=== PATIENT | male | born 1990 | race Caucasian/White ===

== ENCOUNTER 2018-05-02 21:16 | Inpatient (IN) ==
[2018-05-02] MEDS ORDERED: IOPAMIDOL 100 ML BOTTLE IV ONE (21:17)
[2018-05-02] MEDS ORDERED: VANCOMYCIN 1,500 MG in 0.9 % SODIUM CHLORIDE 500 ML IV ONE (21:31)
[2018-05-02] MEDS ORDERED: LACTATED RINGERS 1,000 ML IV ONE (21:31)
[2018-05-02] MEDS ORDERED: LEVOFLOXACIN 750 MG/150 ML BAG IV ONE (21:31)
[2018-05-02] MEDS ORDERED: cefTRIAXone 1 GM VIAL IV ONE (21:31)
--- NOTE | 2018-05-02 21:36 | Emergency Department Note ---
Fever HPI - General Chief Complaint: Fever Stated Complaint: fever Time Seen by Provider: 05/02/18 21:26 Source: patient Mode of arrival: ambulatory - History of Present Illness HPI Narrative: This patient has not had a fever for last several days. He was recently in residential. He was diagnosed in February with possible endocarditis and renal cell carcinoma and was transferred to another hospital I do not know where yet, I assume he did receive treatment. He is an IV meth drug abuser. He was transferred from [facility] to [place] for 6 weeks of IV antibiotics. After that he was supposed to go to [place] to see a urologist and an ID DrLeann but he did not have transportation. He is getting rested briefly. He did go to [facility] ER in the middle of March for fever but left before he could be admitted because he was not getting narcotics. A CT scan at that time was suspicious for osteomyelitis at T11 and an abscess. This patient has been abusing IV meth recently and has a number of track nicole on both hands. His temperature was 105 initially. There is certainly concern for possibility of recurrent endocarditis. Also concern for the possibility of osteomyelitis with an abscess as he has not had any medical care since that possible diagnosis was made a month ago. - Related Data Home Medications Medication Instructions Recorded Confirmed buprenorphine 8 mg-naloxone 2 mg 2 tab SUBLINGUAL QDAY 02/15/18 02/15/18 sublingual tablet doxycycline calcium PO 02/15/18 02/15/18 prednisone PO 02/15/18 02/15/18 Previous Rx's Medication Instructions Recorded Metoclopramide [Reglan] 5 mg PO TIDAC PRN #20 tab 02/18/18 Allergies Allergy/AdvReac Type Severity Reaction Status Date / Time atomoxetine Allergy Unknown Unknown Verified 02/19/18 09:01 bupropion [From Wellbutrin] Allergy Unknown Unknown Verified 02/19/18 09:01 codeine Allergy Swelling Verified 02/19/18 09:01 prochlorperazine AdvReac Seizure Verified 02/19/18 09:01 [From Compazine] Review of Systems All systems ED: reviewed and negative except as stated. Fever PMH - Past Medical History Medical history: Reports: cancer (renal cell), other (drug abuse and large unknown mental health hx, schizophrenia according to mom) Psychiatric history: Reports: schizophrenia Family history: Reports: no significant family history - Social History smoking status: Current every day smoker Alcohol use: Reports: Occasionally Drug use: Reports: IVDU (heroin hx) Physical Exam Limitations: no limitations General appearance: alert Head: atraumatic Eye: Present: normal appearance ENT: normal exam Neck: Present: normal inspection Chest: Present: normal inspection Respiratory: Present: normal lung sounds bilaterally Cardiovascular: Present: regular rate, normal rhythm, normal heart sounds Abdominal: Present: soft. Absent: distention, tenderness Neurological: Present: alert Psychiatric: Present: normal affect, normal mood Skin: Present: warm, dry, intact Course Vital Signs Temperature 105.3 F H 05/02/18 21:17 Pulse Rate 138 H 05/02/18 21:17 Respiratory Rate 22 05/02/18 21:17 Blood Pressure 143/88 05/02/18 21:17 Pulse Oximetry (%) 100 05/02/18 21:17 Temperature 100.6 F H 05/03/18 07:35 Pulse Rate 100 H 05/03/18 08:16 Respiratory Rate 22 05/03/18 08:16 Blood Pressure 106/87 05/03/18 08:16 Pulse Oximetry (%) 98 05/03/18 08:16 Fever - MDM Narrative Medical decision making narrative: Dr. Smith reviewed 3 CAT scans of the patient's back going back to 2013 and does not feel the patient has osteomyelitis. 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 Lab work was otherwise not too remarkable. At this time patient is getting an echocardiogram to rule out endocarditis and will be admitted to the hospital by Dr. Guzman. He has received Levaquin and Rocephin and nafcillin 2 doses of the nafcillin. The septic pulmonary emboli that were evident on the CAT scan in February are almost completely resolved. - Lab Data Lab results reviewed: Yes I reviewed the patient's lab results. Result diagrams: 05/02/18 23:32 05/02/18 21:53 Lab Results 05/02/18 05/02/18 05/02/18 Range/Units 21:53 21:53 21:53 WBC TNP RBC TNP Hgb TNP Hct TNP MCV TNP MCH TNP MCHC TNP RDW TNP Plt Count TNP MPV TNP Gran % (38.0-78.0) % Lymph % (Auto) (15.5-49.0) % [place] % (Auto) (1.0-12.0) % Eos % (Auto) (0.0-7.0) % Baso % (Auto) (0.0-2.0) % Gran # (1.8-8.0) K/mcL Lymph # (Auto) (1.5-4.8) K/mcL [place] # (Auto) (0.1-0.9) K/mcL Eos # (Auto) (0.0-0.7) K/mcL Baso # (Auto) (0.0-0.3) K/mcL VBG Lactic Acid 0.7 (0.5-2.2) mmol/L Sodium 129 L (133-145) mmol/L Potassium 4.1 (3.3-5.1) mmol/L Chloride 94 L (96-108) mmol/L Carbon Dioxide 17 L (22-30) mmol/L Anion Gap 18.0 H (8-16) BUN 10 (6-20) mg/dl Creatinine 1.0 (0.7-1.2) mg/dl GFR Calculation 101 Glucose 100 (70-105) mg/dL Calcium 8.7 (8.6-10.4) mg/dl Total Bilirubin 0.5 (0.0-1.0) mg/dL AST 26 (0-37) U/l ALT 17 (0-40) U/l Alkaline Phosphatase 81 (39-117) U/L Total Protein 7.8 (5.9-8.4) gm/dL Albumin 4.4 (3.2-5.2) gm/dL Globulin 3.4 (2.2-3.7) gm/dL Albumin/Globulin Ratio 1.3 (1.0-2.3) Urine Color Urine Appearance Urine pH (5.0-9.0) Ur Specific [place] (1.000-1.035) Urine Protein (NEG) mg/dL Urine Glucose (UA) (NEG) mg/dL Urine Ketones (NEG) mg/dL Urine Occult Blood (<0.03) mg/dL Urine Nitrate (NEG) Urine Bilirubin (NEG) mg/dL Urine Urobilinogen (NEG) mg/dL Ur Leukocyte Esterase (NEG) /uL Ur Culture Indicated? 05/02/18 05/02/18 Range/Units 23:32 23:35 WBC 7.0 RBC 4.58 Hgb 13.5 Hct 39.4 L MCV 86.0 MCH 29.5 MCHC 34.3 RDW 13.9 Plt Count 201 MPV 7.8 Gran % 80.6 H (38.0-78.0) % Lymph % (Auto) 10.8 L (15.5-49.0) % [place] % (Auto) 8.2 (1.0-12.0) % Eos % (Auto) 0 (0.0-7.0) % Baso % (Auto) 0.4 (0.0-2.0) % Gran # 5.6 (1.8-8.0) K/mcL Lymph # (Auto) 0.8 L (1.5-4.8) K/mcL [place] # (Auto) 0.6 (0.1-0.9) K/mcL Eos # (Auto) 0 (0.0-0.7) K/mcL Baso # (Auto) 0 (0.0-0.3) K/mcL VBG Lactic Acid (0.5-2.2) mmol/L Sodium (133-145) mmol/L Potassium (3.3-5.1) mmol/L Chloride (96-108) mmol/L Carbon Dioxide (22-30) mmol/L Anion Gap (8-16) BUN (6-20) mg/dl Creatinine (0.7-1.2) mg/dl GFR Calculation Glucose (70-105) mg/dL Calcium (8.6-10.4) mg/dl Total Bilirubin (0.0-1.0) mg/dL AST (0-37) U/l ALT (0-40) U/l Alkaline Phosphatase (39-117) U/L Total Protein (5.9-8.4) gm/dL Albumin (3.2-5.2) gm/dL Globulin (2.2-3.7) gm/dL Albumin/Globulin Ratio (1.0-2.3) Urine Color Yellow Urine Appearance Clear Urine pH 6.0 (5.0-9.0) Ur Specific [place] 1.011 (1.000-1.035) Urine Protein Neg (NEG) mg/dL Urine Glucose (UA) Negative (NEG) mg/dL Urine Ketones 5/tr A (NEG) mg/dL Urine Occult Blood Neg (<0.03) mg/dL Urine Nitrate Neg (NEG) Urine Bilirubin Neg (NEG) mg/dL Urine Urobilinogen Neg (NEG) mg/dL Ur Leukocyte Esterase Neg (NEG) /uL Ur Culture Indicated? No - Radiology Data Radiology results reviewed: Yes I reviewed the patient's radiology results. Disposition Pt seen by CLAMP REMOVER/PA only: No Clinical Impression: Fever of unknown origin Disposition: Xfer As Inpt ([facility]) Condition: Good Referrals: Darrin Rae MD [Primary Care Provider] - Time of Disposition: 08:42
[2018-05-02] MEDS ORDERED: cefTRIAXone 1 GM VIAL ONE (22:52)
[2018-05-02] MEDS ORDERED: 0.9 % SODIUM CHLORIDE 1,000 ML IV ONE (22:53)
[2018-05-02 23:11] LABS: ALT/SGPT 17 U/l (0-40); Albumin 4.4 gm/dL (3.2-5.2); Albumin/Globulin Ratio 1.3 (1.0-2.3); Alkaline Phosphatase 81 U/L (39-117); Blood Urea Nitrogen 10 mg/dl (6-20)
[2018-05-02] MEDS ORDERED: SODIUM CHLORIDE 0.9% IV ONE (23:17)
[2018-05-02] MEDS ORDERED: NAFCILLIN IV ONE (23:17)
[2018-05-03 00:14] LABS: Basophils # (Auto) 0 K/mcL (0.0-0.3); Basophils % (Auto) 0.4 % (0.0-2.0); Eosinophils # (Auto) 0 K/mcL (0.0-0.7); Eosinophils % (Auto) 0 % (0.0-7.0); Granulocytes % (Auto) 80.6 % (38.0-78.0); Lymphocytes # (Auto) 0.8 K/mcL (1.5-4.8); Lymphocytes % (Auto) 10.8 % (15.5-49.0); Mean Corpuscular HGB Conc 34.3 g/dL (31.0-36.0); Mean Corpuscular Hemoglobin 29.5 pg (26.0-34.0); Monocytes # (Auto) 0.6 K/mcL (0.1-0.9); Monocytes % (Auto) 8.2 % (1.0-12.0); Platelet Count 201 K/mcL (140-440); RBC 4.58 M/mcL (4.50-5.90); Red Cell Distribution Width 13.9 % (11.5-14.5)
[2018-05-03 00:17] LABS: Appearance,Urine CLEAR; Bilirubin,Urine NEG (NEG); Color,Urine YELLOW; Glucose,Urine (UA) NEGATIVE (NEG); Leukocyte Esterase,Urine NEG /uL (NEG); Protein,Urine NEG (NEG); Specific Gravity,Urine 1.011 (1.000-1.035); Urine Blood NEG mg/dL (<0.03); Urobilinogen,Urine NEG (NEG)
[2018-05-03] MEDS: HYDROmorphone 2 MG/ML VIAL IV PRN ×3 (01:45→09:34)
[2018-05-03] MEDS ORDERED: ACETAMINOPHEN 325 MG TABLET PO ONE (02:10)
[2018-05-03] MEDS ORDERED: ACETAMINOPHEN 1,000 MG/100 ML BOTTLE IV ONE (06:42)
[2018-05-03] MEDS: SODIUM CHLORIDE 0.9% IV SCH ×2 (06:50→21:11)
[2018-05-03] MEDS: NAFCILLIN IV SCH ×2 (06:50→21:11)
--- NOTE | 2018-05-03 07:53 | Cat Scan Report ---
History: Headaches and fever TECHNIQUE: The brain was imaged without contrast at 2.5 mm intervals. Radiation exposure was limited using dose reduction technology. FINDINGS: The brain appears normal without evidence of inflammation, edema, infarct, hemorrhage or mass effect. The ventricles and cisterns are normal. The bone windows show no skull lesion. There is moderate bilateral ethmoid sinusitis and mild sphenoid and left frontal sinusitis. IMPRESSION: Normal brain Sinusitis Interpreted and Authenticated by: Santino Smith 05/03/18
--- NOTE | 2018-05-03 08:35 | Cat Scan Report ---
History: Fever and left renal cell cancer TECHNIQUE: Patient was imaged following intravenous contrast scanning during the venous phase from the thoracic inlet through the symphysis pubis. Sagittal, coronal and MIPS images were then created. FINDINGS: CHEST: Beneath the pleura laterally in the left upper lobe there is a 3 mm nodule. This is probably a granuloma. Multiple cavitary nodules are scattered throughout both lungs on the prior chest CT done at [facility] on 03/06/18. These have since resolved, indicating this is due to an infectious or inflammatory process. No suspicious mass is seen in either lung. There is no pulmonary abscess or pleural effusion. There are thin linear bands of discoid atelectasis or scar paralleling the pleural surface in the posterior lateral basal segment right lower lobe and to a lesser extent in the lateral basal segment left lower lobe. There are couple reactive lymph nodes in the pretracheal retrocaval space of the mediastinum. These have diminished in size. The heart is normal in size and contour. The aorta is normal in caliber and the central pulmonary arteries are normal without evidence of emboli. Abdomen and pelvis: The liver and spleen are normal in size and homogeneous. The gallbladder pancreas, adrenals and right kidney are normal. There is an exophytic solid mass located laterally in the lower third of left kidney. It has lower attenuation than that of the adjacent cortex during both the arterial and delayed excretory phase. It measures 1.7 x 1.[address] done at [facility] on 03/06/18 was performed without contrast. The mass was less conspicuous on the prior CT and the measurements were less accurate. The mass may have enlarged 1 mm. There is no associated retroperitoneal adenopathy. The left renal vein and inferior vena cava are normal. There is no extension of tumor through Gerota's fascia. The bowel gas pattern is normal. The appendix is noninflamed. Urinary bladder is unopacified but appears normal. No abnormality seen in the prostate or seminal vesicles. There is no adenopathy or ascites within the abdomen or pelvis.. 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 The greatest involvement is at T11. There is a mild anterior wedge compression deformity of T11, involving the superior endplate. There is approximately 20% loss of height anteriorly. There is no erosion of bone. The medullary bone has a subtle heterogeneous sclerotic pattern. No paraspinal abscess or edema are present. The appearance of the T11 vertebra has remained stable since 03/27/18. The mild sclerotic pattern and loss of height of the T11 vertebra are new since 2013. The left renal mass was also not present in 2014. IMPRESSION: Near complete resolution of the cavitary infiltrates seen throughout both lungs on recent chest CTs done at [facility]. There is some residual scarring in both lung bases and a small granuloma laterally in the left upper lobe Slowly enlarging tumor in the left kidney which is highly suspicious for renal cell carcinoma. Scheuermann's disease in the thoracic and lumbar spine Mild compression fracture at T11 which is not acute. The mild sclerosis seen at T11 is more likely due to reparative changes from the compression fracture rather than chronic low-grade osteomyelitis. Dr. Azevedo was called with the results Interpreted and Authenticated by: Santino Smith 05/03/18
--- NOTE | 2018-05-03 08:46 | XRay Report ---
HISTORY: High fever and smoker FINDINGS: There is a small peripheral scar laterally in the left mid thorax. This is a chronic stable finding. The lungs are otherwise clear, without evidence of pneumonia or mass. There is no adenopathy or pleural effusion. The heart size and pulmonary vasculature are normal. There has been little change since 03/22/18. IMPRESSION: Normal chest. Interpreted and Authenticated by: Santino Smith 05/03/18
[2018-05-03] MEDS ORDERED: 0.9 % SODIUM CHLORIDE 1,000 ML IV SCH (10:00)
--- NOTE | 2018-05-03 10:02 | Internal Med History&Physical ---
Medical - H&P: HPI Patient information: Note initiated : 05/03/18 at 9:58 am Service Date, if different from initiated Date: [] Patient: Wilman Rosas a 28 y/o M admitted on for fever. Chief Complaint: [] History of present illness: Mr. Rosas is a 28 year old M Who presents with generalized weakness fatigue malaise fevers headaches chills, he states this been going on for a 1-2 weeks but worsened over the past 1-2 days. History is significant for endocarditis in February he was discharged to rehab facility for 6 weeks of the antibiotics he was released in March. In March he went to [facility] ER there was concern for possible spinal osteo- the patient left the ER AMA. Has not seen anybody since then. Has sound like a fairly recent diagnosis of renal cell carcinoma this year. After getting out of rehab he was supposed to follow-up with infectious disease and oncologist in [place] he did not follow-up with them because of transportation issues. In the ER he is found to be febrile of up to 105, mildly tachycardic, blood pressure stable. No leukocytosis and lactate was within normal limits. He is using IV methamphetamines again last time he used was last . Concern for recurrent endocarditis. CT scan of the abdomen chest and pelvis was done which showed resolution of his pulmonary septic emboli otherwise no acute pathology other than enlarging left renal tumor. The CT scan was reviewed including the past scans including the one at [facility] where there is concern for osteo-in all 3 scans were compared by the radiologist felt there is no vertebral osteomyelitis. Review of Systems: Patient complains of generalized weakness fatigue malaise fever chills headache , chronic neck and back pain, nausea. denies vomiting/chest or abdominal pain/ cough/dyspnea/diarrhea. 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) Moderate mood disorder (Chronic) Atypical mole (Chronic) Hematuria (Chronic) Abdominal pain, generalized (Chronic) Fever (Chronic) Renal mass (Chronic) Primary malignant neoplasm of left renal pelvis (Chronic) Opioid dependence (Chronic) Allergic rhinitis (Chronic) Asthma (Chronic) ADD (attention deficit disorder) (Chronic) Left flank pain (Chronic) Primary malignant neoplasm (Chronic) Shoulder strain (Chronic) Drug-induced psychotic disorder (Chronic) Depression (Chronic) Left against medical advice (Chronic) Osteomyelitis (Chronic) Past Surgical History (Last Reviewed 02/15/18 @ 09:46 by Rebekah Bradford RN) History of orthopedic surgery (Chronic) Family History (Last Reviewed 02/15/18 @ 09:46 by Rebekah Bradford RN) Father Schizophrenia Suicide Mother Brain aneurysm Other Diabetes Hypertension Kidney stone Social History (Last Updated 02/15/18 @ 10:11 by Aureliano Shelley MD) Smokes half pack cigarettes per day Social alcohol IV drug abuse with just methamphetamines Lives with family Medical - H&P: Meds Home Medications Medication Instructions Recorded Confirmed Type buprenorphine 8 mg-naloxone 2 mg 2 tab SUBLINGUAL QDAY 02/15/18 02/15/18 History sublingual tablet doxycycline calcium PO 02/15/18 02/15/18 History prednisone PO 02/15/18 02/15/18 History Metoclopramide [Reglan] 5 mg PO TIDAC PRN #20 tab 02/18/18 Rx Allergies Allergy/AdvReac Type Severity Reaction Status Date / Time atomoxetine Allergy Unknown Unknown Verified 02/19/18 09:01 bupropion [From Wellbutrin] Allergy Unknown Unknown Verified 02/19/18 09:01 codeine Allergy Swelling Verified 02/19/18 09:01 prochlorperazine AdvReac Seizure Verified 02/19/18 09:01 [From Compazine] Medical - H&P: Exam - Constitutional Vitals: Temp Pulse Resp BP Pulse Ox 98.1 F 93 H 16 112/72 99 05/03/18 09:15 05/03/18 09:46 05/03/18 09:46 05/03/18 09:46 05/03/18 09:46 Exam: General: Alert, Awake, No acute Distress HEENT: EOMI, pupils equal round react to light, normocephalic atraumatic, dry mucous membranes CV: RRR, No murmurs appreciated, normal s1/s2 Pulm: Clear b/l, no wheezing/rhonchi/rales Abd: soft, nontender, +BS x4 Ext: no clubbing/cyanosis/edema. No findings of splinter hemorrhages or [place] nodes or [place] lesions, multiple needle track nicole bilateral arms from antecubital to hands Neuro: Alert, no focal deficits, moves all extremities Skin: warm/dry Medical - H&P: Reslt - Labs CBC & Chem 7: 05/02/18 23:32 05/02/18 21:53 Labs: Short CBC 05/02/18 05/02/18 Range/Units 21:53 23:32 WBC TNP 7.0 Hgb TNP 13.5 Hct TNP 39.4 L Plt Count TNP 201 BMP 05/02/18 21:53 Sodium 129 L Potassium 4.1 Chloride 94 L Carbon Dioxide 17 L BUN 10 Creatinine 1.0 Glucose 100 Calcium 8.7 Liver Function 05/02/18 Range/Units 21:53 Total Bilirubin 0.5 (0.0-1.0) mg/dL AST 26 (0-37) U/l ALT 17 (0-40) U/l Alkaline Phosphatase 81 (39-117) U/L Albumin 4.4 (3.2-5.2) gm/dL Urine 05/02/18 Range/Units 23:35 Urine Color Yellow Urine Appearance Clear Urine pH 6.0 (5.0-9.0) Ur Specific [place] 1.011 (1.000-1.035) Urine Protein Neg (NEG) mg/dL Urine Glucose (UA) Negative (NEG) mg/dL Medical - H&P: A/P - Narrative A/P Narrative: A: *Fever in IV drug abuser w/history of endocarditis, concern for recurrent endocarditis: *IV drug abuse: Methamphetamines *Depression/anxiety: *Renal cell carcinoma: Has not followed up with oncology *Chronic neck and back pain * * P: -IV Vanco/cefepime -Blood cultures pending -ID consult -UDS pending -As needed benzos for withdrawal -Check ESR/CRP -Case management for assistance with drug abuse program - -ppx: Lovenox
[2018-05-03] MEDS ORDERED: PROMETHAZINE 25 MG TABLET PO PRN (13:04)
[2018-05-03] MEDS ORDERED: PROCHLORPERAZINE 25 MG SUPP.RECT PR PRN (13:04)
[2018-05-03] MEDS ORDERED: ONDANSETRON 4 MG/2 ML VIAL IV PRN (13:04)
[2018-05-03] MEDS: 0.9 % SODIUM CHLORIDE 1,000 ML IV SCH ×2 (13:47→23:16)
[2018-05-03] MEDS: LORazepam 2 MG/ML VIAL IV PRN (15:55)
[2018-05-03] MEDS: ACETAMINOPHEN 325 MG TABLET PO PRN (16:13)
[2018-05-03] MEDS: CEFEPIME 2 GM VIAL IV SCH ×2 (16:50→21:46)
[2018-05-03] MEDS: 0.9 % SODIUM CHLORIDE 10 ML SYRINGE IV SCH ×2 (16:51→21:47)
[2018-05-03] MEDS: morphine 30 MG TAB.SR.12H PO SCH ×2 (17:44→23:14)
--- NOTE | 2018-05-03 18:07 | Infectious Disease Consult ---
History of Present Illness Patient information: Note initiated : 05/03/18 at 6:06 pm Service Date, if different from initiated Date: [] Patient: Wilman Rosas 28 y/o M admitted on 05/03/18 for fever. 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 It all happened in February 2018 when he was discharged to rehab facility for 6 weeks of the antibiotics he was released in March. In March he went to [facility] ER there was concern for possible spinal osteo-the patient left the ER AMA. Has not seen anybody since then. Has sound like a fairly recent diagnosis of renal cell carcinoma this year. After getting out of rehab he was supposed to follow-up with infectious disease and oncologist in [place] he did not follow-up with them because of transportation issues. - renal cell Ca Pt was admitted with c/o generalized weakness, fatigue, malaise, fevers, headaches, chills going on for last 2 weeks or so. Pt feels these symptoms have more worse for last 2 days. He also c/o pain in right side of posterior chest and back. He endorses IV drug use in last few weeks, using meth with his brother. In the ER he had a temp of 105 F, mildly tachycardic, blood pressure stable. WBC, lactate normal. CT scan of the abdomen chest and pelvis was done which showed resolution of his pulmonary septic emboli otherwise no acute pathology other than enlarging left renal tumor. The CT scan was reviewed including the past scans including the one at [facility] where there is concern for osteo-in all 3 scans were compared by the radiologist felt there is no vertebral osteomyelitis. Pt was started on IV Vanc and IV cefepime after 2 sets of blood Cx were drawn. A TTE was also done in ED, reports of which are pending. Review of Systems All systems PM: reviewed and no additional remarkable complaints except as stated Past History Past medical history: IE IV drug use Past family history: Pt does IV drugs with his brother Past social history: Endorsed IV drug use. Shoots in the dorsum of hands. Denies licking of needles. Uses water to clean them Medications and Allergies Home Medications Medication Instructions Recorded Confirmed Type buprenorphine 8 mg-naloxone 2 mg 2 tab SUBLINGUAL QDAY 02/15/18 02/15/18 History sublingual tablet doxycycline calcium PO 02/15/18 02/15/18 History prednisone PO 02/15/18 02/15/18 History Metoclopramide [Reglan] 5 mg PO TIDAC PRN #20 tab 02/18/18 Rx Albuterol Sulfate [Ventolin] 1 puff INH Q4-6HP PRN 05/03/18 05/03/18 History Ibuprofen [Motrin] 600 mg PO TID 05/03/18 05/03/18 History morphine SULFATE [Morphine Sulfate 30 mg PO Q8 05/03/18 05/03/18 History ER] morphine SULFATE [Morphine Sulfate 60 mg PO Q8 05/03/18 05/03/18 History ER] Allergies Allergy/AdvReac Type Severity Reaction Status Date / Time codeine Allergy Intermediate Swelling Verified 05/03/18 16:16 atomoxetine Allergy Unknown Unknown Verified 02/19/18 09:01 bupropion [From Wellbutrin] Allergy Unknown Unknown Verified 02/19/18 09:01 prochlorperazine AdvReac Intermediate Seizure Verified 05/03/18 16:16 [From Compazine] Physical Examination Vital signs: Temp Pulse Resp BP Pulse Ox 36.4 C 101 H 19 101/73 100 05/03/18 16:23 05/03/18 17:05 05/03/18 17:37 05/03/18 17:02 05/03/18 17:05 General appearance: appears uncomfortable Eyes pulmonary: nonicteric Auscultation: bilateral: clear Cardiovascular: regular rate and rhythm Gastrointestinal: non-tender, non-distended Integumentary: erythema (over face and neck, flushed) Extremities: no cyanosis normal mental status anxious Results - Laboratory Findings CBC and BMP: 05/02/18 23:32 05/02/18 21:53 Abnormal lab findings: Abnormal Labs 05/02/18 05/02/18 05/02/18 21:53 23:32 23:35 Hct 39.4 L Gran % 80.6 H Lymph % (Auto) 10.8 L Lymph # (Auto) 0.8 L Sodium 129 L Chloride 94 L Carbon Dioxide 17 L Anion Gap 18.0 H C-Reactive Protein Urine Ketones 5/tr A 05/03/18 23:32 Hct Gran % Lymph % (Auto) Lymph # (Auto) Sodium Chloride Carbon Dioxide Anion Gap C-Reactive Protein 5.3 H Urine Ketones Microbiology: Microbiology 05/03/18 12:56 Nose - Both Right and Left MRSA (PCR) - Final 05/02/18 21:53 Blood Blood Culture - Preliminary Gram positive cocci 05/02/18 22:06 Blood Blood Culture - Preliminary Gram positive cocci Assessment and Plan - Narrative A/P Narrative: A: 1. Gram-positive bacteremia with recent Hx of endocarditis and septic emboli: - TTE from this admission is pending. Based on 2 +ve blood Cx [1 major criteria] , fever and IV drug use [2 minor criteria]; pt is likely to have Possible endocarditis. Given the fact that pt has repeated IV drug use, and didnot complete the duration of treatment for IE; he should be treated as presumed endocarditis and treated for at least 4-6 weeks of IV antibiotics followed by oral suppresison (if needed) 2. Rt sided back pain: pain on deep breathing, tenderness over right posterior chest raises concerns for embolic complications: seeding of lungs and pleura, and vertebral spine 3. Active IV drug use Recommendations: - For best outcomes, pt should be placed in a SNF to prevent drug use through the PICC line - Start IV Vanc 1.5 gm q12. Check trough before the 4th dose (target 15-20). - Stop IV Cefepime. Start IV Cefazolin 2 gm q8 hrs - will await final ID and sensis - Consider MRI of thoraco-lumbar spine to rule out any abscess in vertebrae, or OM - await TTE results will follow Reza Mcgarry MD Infectious diseases
[2018-05-03] MEDS ORDERED: LORazepam 2 MG/ML VIAL IV ONE (18:08)
[2018-05-03] MEDS: FAMOTIDINE 20 MG TABLET PO SCH (21:46)
[2018-05-03] MEDS ORDERED: VANCOMYCIN PER PHARMACY IV SCH (22:25)
[2018-05-04] MEDS: LORazepam 2 MG/ML VIAL IV PRN ×3 (02:10→20:45)
[2018-05-04] MEDS: ACETAMINOPHEN 325 MG TABLET PO PRN ×2 (02:11→19:08)
[2018-05-04 05:36] LABS: Mean Cell Volume 86.8 fL (80.0-100.0); Mean Corpuscular HGB Conc 33.6 g/dL (31.0-36.0); Mean Corpuscular Hemoglobin 29.2 pg (26.0-34.0); Platelet Count 192 K/mcL (140-440); RBC 4.71 M/mcL (4.50-5.90); Red Cell Distribution Width 13.7 % (11.5-14.5)
[2018-05-04 06:03] LABS: ALT/SGPT 13 U/l (0-40); Albumin 3.4 gm/dL (3.2-5.2); Albumin/Globulin Ratio 1.2 (1.0-2.3); Alkaline Phosphatase 66 U/L (39-117); Bilirubin,Direct < 0.2 mg/dL (0.0-0.3); Blood Urea Nitrogen 14 mg/dl (6-20); Gamma Glutamyl Transpeptidase 15 U/L (8-61); Uric Acid 5.5 mg/dL (2.5-8.0)
[2018-05-04] MEDS: morphine 30 MG TAB.SR.12H PO SCH ×3 (06:19→22:26)
[2018-05-04] MEDS: CEFEPIME 2 GM VIAL IV SCH (06:19)
[2018-05-04] MEDS: 0.9 % SODIUM CHLORIDE 10 ML SYRINGE IV SCH ×3 (06:20→22:46)
--- NOTE | 2018-05-04 07:21 | Internal Med Progress Note ---
Medical - PN: Subj Patient information: Note initiated : 05/04/18 at 7:18 am Service Date, if different from initiated Date: [] Patient: Wilman Rosas a 28 y/o M admitted on 05/03/18 for fever. Chief Complaint: [] Interval history: Mr. Rosas is a 28 year old M Who presents with generalized weakness fatigue malaise fevers headaches chills, he states this been going on for a 1-2 weeks but worsened over the past 1-2 days. History is significant for endocarditis in February he was discharged to rehab facility for 6 weeks of the antibiotics he was released in March. In March he went to [facility] there was concern for possible spinal osteo- the patient left the ER AMA. Has not seen anybody since then. Has sound like a fairly recent diagnosis of renal cell carcinoma this year. After getting out of rehab he was supposed to follow-up with infectious disease and oncologist in [place] he did not follow-up with them because of transportation issues. In the ER he is found to be febrile of up to 105, mildly tachycardic, blood pressure stable. No leukocytosis and lactate was within normal limits. He is using IV methamphetamines again last time he used was last . Concern for recurrent endocarditis. CT scan of the abdomen chest and pelvis was done which showed resolution of his pulmonary septic emboli otherwise no acute pathology other than enlarging left renal tumor. The CT scan was reviewed including the past scans including the one at [facility] where there is concern for osteo-in all 3 scans were compared by the radiologist felt there is no vertebral osteomyelitis. 05/04 Some chronic pain. Occasional cough. Slept on and off last night. Review of Systems: denies headache/fever/chills/nausea/vomiting/abdominal pain/dyspnea/diarrhea. Otherwise see above. - Constitutional Vitals: Vital Signs Temp Pulse Resp BP Pulse Ox 98 F 107 H 26 H 120/84 100 05/03/18 20:18 05/04/18 07:02 05/04/18 03:00 05/04/18 07:01 05/04/18 07:02 Period Temp Pulse Resp BP Sys/West Pulse Ox Last 24 Hr 97.5 F-100.6 F 75-107 13-36 94-122/60-96 97-100 Intake and Output 05/03/18 05/04/18 05/04/18 21:59 05:59 13:59 Intake Total 2027 Output Total 750 / 750 1000 / 1000 600 / 600 Balance -750 / -750 1028 / 1028 -600 / -600 Weight 82.554 kg Intake & Output: Intake & Output 05/03/18 05/04/18 05/04/18 21:59 05:59 13:59 Intake Total 2027 Output Total 750 / 750 1000 / 1000 600 / 600 Balance -750 / -750 1028 / 1028 -600 / -600 Weight 82.554 kg Intake: IV 948 / 948 Sodium Chloride 0.9% 1,000 ml @ 948 / 948 100 mls/hr IV .Q10H [facility] Rx#: [id number] GI Tube Flush 1080 / 1080 Output: Void Amount 750 / 750 1000 / 1000 600 / 600 # of times incontinent of urine 0 / 0 Other: Meal Dinner Percent of Meal Consumed [place] Feeding Ability Assist with Tray Set Up Urine Appearance Clear Clear Urine Color Dark Yellow Dark Yellow Urine Odor Strong Normal # Voids 1 Exam: General: Alert, Awake, No acute Distress HEENT: EOMI, neck supple CV: RRR, No murmurs appreciated, normal s1/s2 Pulm: Clear b/l, no wheezing/rhonchi/rales Abd: soft, nontender, +BS x4 Ext: no clubbing/cyanosis/edema. No findings of splinter hemorrhages or Osler nodes or Janeway lesions, multiple needle track nicole bilateral arms from antecubital to hands Neuro: Alert, no focal deficits, moves all extremities Skin: warm/dry Medical - PN: Obj Da - Labs CBC & Chem 7: 05/04/18 04:00 05/04/18 04:00 Labs: Abnormal Lab Results 05/04/18 05/04/18 05/03/18 04:00 04:00 23:32 Hct 40.9 L Gran % Lymph % (Auto) Lymph # (Auto) ESR Sodium Chloride Carbon Dioxide 20 L Anion Gap Calcium 8.1 L C-Reactive Protein 5.3 H Urine Ketones 05/03/18 05/02/18 05/02/18 18:50 23:35 23:32 Hct 39.4 L Gran % 80.6 H Lymph % (Auto) 10.8 L Lymph # (Auto) 0.8 L ESR 27 H Sodium Chloride Carbon Dioxide Anion Gap Calcium C-Reactive Protein Urine Ketones 5/tr A 05/02/18 21:53 Hct Gran % Lymph % (Auto) Lymph # (Auto) ESR Sodium 129 L Chloride 94 L Carbon Dioxide 17 L Anion Gap 18.0 H Calcium C-Reactive Protein Urine Ketones Meds: Medications Acetaminophen (Tylenol) 650 mg PO Q6HP PRN PRN Reason: PAIN/FEVER > 101 Last Admin: 05/04/18 02:11 Dose: 325 mg Cefepime HCl (Maxipime) 2 gm IV Q8H [facility] Last Admin: 05/04/18 06:19 Dose: 2 gm Enoxaparin Sodium (Lovenox) 40 mg SQ DAILY [facility] Famotidine (Pepcid) 20 mg PO BID [facility] Last Admin: 05/03/18 21:46 Dose: 20 mg Vancomycin HCl 1,500 mg/ (Sodium Chloride) 500 mls @ 333.3 mls/hr IV Q12H [facility] Lorazepam (Ativan) 1 mg IV Q4HP PRN PRN Reason: ANXIETY/SEDATION Last Admin: 05/04/18 02:10 Dose: 1 mg Morphine Sulfate (Ms Contin) 60 mg PO Q8 [facility] Last Admin: 05/04/18 06:19 Dose: 60 mg Ondansetron HCl (Zofran) 4 mg IV Q4HP PRN PRN Reason: Nausea And Vomiting Prochlorperazine Maleate (Compazine) 12.5 mg [place] Q12HP PRN PRN Reason: Nausea And Vomiting Promethazine HCl (Phenergan) 12.5 mg PO Q6HP PRN PRN Reason: Nausea And Vomiting Sodium Chloride (Saline Flush) 10 ml IV Q8 [facility] Last Admin: 05/04/18 06:20 Dose: 10 ml Vancomycin HCl (Vancomycin Per Pharmacy) 1 order IV [facility] Medical - PN: A/P - Time Spent With Patient Total time spent is greater than 50% in coordination of care (as documented) at patient's floor/unit and/or counseling patient: - Narrative A/P Narrative: A: *Endocarditis, 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: -TTE with small vegetation on Tricuspid valve *Bacteremia (MSSA): as above *IV drug abuse: Methamphetamines *Depression/anxiety: *Renal cell carcinoma: Has not followed up with oncology *Chronic neck and back pain *Hyponatremia: resolved with IVF's P: -IV cefazolin -Blood cultures pending, once negative will place PICC and d/c to facility -ID following -UDS pending -prn benzos for withdrawal -Case management for assistance with drug abuse program and placement -f/u with ID outpt and f/u with Oncologist -ppx: Lovenox Medical - PN: Qual - VTE Deep Vein Thrombosis/Pulmonary Embolism Present on Admission: No
[2018-05-04 07:31] LABS: Lymphocytes % 30 % (15-49); Monocytes % (Manual) 7 % (1-12); Platelet Estimate NORMAL (NORMAL); RBC Morphology NORMAL (NORMAL); Segmented Neutrophils % 62 % (38-78)
[2018-05-04] MEDS ORDERED: VANCOMYCIN 1,500 MG in 0.9 % SODIUM CHLORIDE 500 ML IV SCH (09:00)
[2018-05-04] MEDS: ENOXAPARIN 40 MG/0.4 ML SYRINGE SQ SCH ×2 (09:15→09:26)
[2018-05-04] MEDS: FAMOTIDINE 20 MG TABLET PO SCH ×2 (09:15→22:00)
[2018-05-04] MEDS ORDERED: PROCHLORPERAZINE 25 MG SUPP.RECT PR PRN (10:52)
[2018-05-04] MEDS ORDERED: ONDANSETRON 4 MG/2 ML VIAL IV PRN (10:52)
[2018-05-04] MEDS ORDERED: PROMETHAZINE 25 MG TABLET PO PRN (10:52)
[2018-05-04] MEDS ORDERED: ceFAZolin 1 GM VIAL IV SCH (11:00)
[2018-05-04] MEDS: ceFAZolin 1 GM VIAL IV SCH ×2 (11:00→19:08)
[2018-05-04 12:14] LABS: Amphetamine Screen,Urine SUSPECT POSITIVE (NONDETECTED); Benzodiazepines Screen,Urine SUSPECT POSITIVE (NONDETECTED); Cocaine Screen,Urine NONE DETECTED (NONDETECTED); Opiate Screen,Urine SUSPECT POSITIVE (NONDETECTED); Oxycodone, Urine Screen NONE DETECTED (NONDETECTED)
[2018-05-04] MEDS ORDERED: IBUPROFEN 200 MG TABLET PO PRN (19:50)
--- NOTE | 2018-05-04 22:18 | Infectious Disease Prog Note ---
Subjective Patient information: Note initiated : 05/04/18 at 10:15 pm Service Date, if different from initiated Date: [] Patient: Wilman Rosas 28 y/o M admitted on 05/03/18 for Fever. Chief Complaint: [] Interval history: pt feels better. Still endorses pain over left back and chest. No fever, n/v/d. Pt expresses his motivation to come off IV drugs, and give his 100% in completing treatment. Objective Objective Narrative: ao x 3, in nad no thrush chest cta s1 s2 normal, no murmurs auscultable bs ++ , tender to touch in LUQ no edema - Vital Signs Vital signs: Vital Signs Temp Pulse Pulse Resp BP BP Pulse Ox 05/04/18 20:00 37.3 C H 98 H 18 103/63 96 05/04/18 16:00 36.9 C 105 H 18 122/77 96 05/04/18 12:00 36.3 C 104 H 18 120/74 98 05/04/18 11:10 27 H 05/04/18 11:01 22 110/73 05/04/18 10:16 22 05/04/18 10:02 23 H 116/95 96 05/04/18 09:01 36.8 C 93 H 20 116/77 98 05/04/18 08:38 109 H 22 100 05/04/18 08:01 90 14 123/78 99 05/04/18 08:00 99 05/04/18 07:02 107 H 100 05/04/18 07:01 104 H 120/84 97 05/04/18 06:01 102 H 106/60 97 05/04/18 06:00 100 H 98 05/04/18 05:00 92 H 116/72 97 05/04/18 03:00 26 H 105/66 05/04/18 02:01 101 H 20 106/84 98 05/04/18 01:01 95 H 26 H 109/67 100 05/04/18 00:00 96 H 24 H 110/72 99 05/03/18 23:01 89 24 H 94/67 100 Intake and Output 05/04/18 05/04/18 05/05/18 13:59 21:59 05:59 Intake Total 1840 / 1840 540 / 540 Output Total 1325 / 1325 500 / 500 Balance 515 / 515 40 / 40 Intake: IV 1000 / 1000 Oral 840 / 840 540 / 540 Output: Void Amount 1325 / 1325 500 / 500 Other: Meal Lunch Percent of Meal Consumed 100% Feeding Ability Assist with Tray Set Up Urine Appearance Clear Urine Color Pale # Voids 1 # Bowel Movements 1 Weight 82.554 kg 85.049 kg Patient Weight 05/05/18 05:59 Weight 85.049 kg Intake & Output: Intake & Output 05/04/18 05/04/18 05/05/18 13:59 21:59 05:59 Intake Total 1840 / 1840 540 / 540 Output Total 1325 / 1325 500 / 500 Balance 515 / 515 40 / 40 Weight 82.554 kg 85.049 kg Intake: IV 1000 / 1000 Oral 840 / 840 540 / 540 Output: Void Amount 1325 / 1325 500 / 500 Other: Meal Lunch Percent of Meal Consumed 100% Feeding Ability Assist with Tray Set Up Urine Appearance Clear Urine Color Pale # Voids 1 # Bowel Movements 1 - Lab 05/04/18 04:00 05/04/18 04:00 Most recent lab results Calcium 8.1 mg/dl (8.6-10.4) L 05/04/18 04:00 Phosphorus 4.1 mg/dL (2.7-4.5) 05/04/18 04:00 Magnesium 2.1 mg/dL (1.6-2.5) 05/04/18 04:00 Microbiology 05/03/18 18:50 Blood Blood Culture - Preliminary 05/03/18 18:50 Blood Blood Culture - Final 05/03/18 12:56 Nose - Both Right and Left MRSA (PCR) - Final 05/02/18 21:53 Blood Blood Culture - Preliminary Gram positive cocci 05/02/18 22:06 Blood Blood Culture - Preliminary Gram positive cocci Medications Active Medications: Acetaminophen (Tylenol) 650 mg PO Q6HP PRN PRN Reason: PAIN/FEVER > 101 Last Admin: 05/04/18 19:08 Dose: 650 mg Cefazolin Sodium (Ancef) 2 gm IV Q8H [facility] Last Admin: 05/04/18 19:08 Dose: 2 gm Admin: 05/04/18 11:00 Dose: 2 gm Enoxaparin Sodium (Lovenox) 40 mg SQ DAILY [facility] Famotidine (Pepcid) 20 mg PO BID [facility] Ibuprofen (Motrin) 400 mg PO Q4HP PRN PRN Reason: Pain Lorazepam (Ativan) 1 mg IV Q4HP PRN PRN Reason: ANXIETY/SEDATION Last Admin: 05/04/18 13:56 Dose: 1 mg Morphine Sulfate (Ms Contin) 60 mg PO Q8 [facility] Last Admin: 05/04/18 13:56 Dose: 60 mg Ondansetron HCl (Zofran) 4 mg IV Q4HP PRN PRN Reason: Nausea And Vomiting Prochlorperazine Maleate (Compazine) 12.5 mg [place] Q12HP PRN PRN Reason: Nausea And Vomiting Promethazine HCl (Phenergan) 12.5 mg PO Q6HP PRN PRN Reason: Nausea And Vomiting Sodium Chloride (Saline Flush) 10 ml IV Q8 [facility] Last Admin: 05/04/18 13:58 Dose: 10 ml Assessment and Plan - Narrative A/P Narrative: A: 1. MSSA [place] TV endocarditis: blood Cx +ve for Staph aureus with neg mecA gene suggesting it to be MSSA - TTE showing TV vegetation. 2. Lt sided back pain, LUQ pain: pain on deep breathing, tenderness over left posterior chest raises concerns for embolic complications: seeding of lungs and pleura, and splenic emboli 3. Active IV drug use Recommendations: - For best outcomes, pt should be placed in a SNF to prevent drug use through the PICC line - Continue IV Cefazolin 2 gm q8 hrs - will await blood Cx to be negative. Once neg for 72 hrs, a PICC line can be placed - Consider MRI of thoraco-lumbar spine to rule out any abscess in vertebrae, or OM - will decide final duration, date of follow up at time of discharge will follow Reza Mcgarry MD Infectious diseases
[2018-05-05] MEDS: ceFAZolin 1 GM VIAL IV SCH ×3 (03:01→21:39)
[2018-05-05] MEDS: ACETAMINOPHEN 325 MG TABLET PO PRN ×4 (04:12→22:28)
[2018-05-05] MEDS: LORazepam 2 MG/ML VIAL IV PRN ×3 (04:18→22:32)
[2018-05-05] MEDS: morphine 30 MG TAB.SR.12H PO SCH ×3 (05:30→21:33)
[2018-05-05] MEDS: 0.9 % SODIUM CHLORIDE 10 ML SYRINGE IV SCH ×3 (05:31→21:32)
[2018-05-05] MEDS: FAMOTIDINE 20 MG TABLET PO SCH ×2 (08:36→21:32)
[2018-05-05] MEDS ORDERED: ENOXAPARIN 40 MG/0.4 ML SYRINGE SQ SCH (09:00)
[2018-05-05] MEDS ORDERED: PROCHLORPERAZINE 25 MG SUPP.RECT PR PRN (16:20)
[2018-05-05] MEDS ORDERED: ONDANSETRON 4 MG/2 ML VIAL IV PRN (16:20)
[2018-05-05] MEDS ORDERED: PROMETHAZINE 25 MG TABLET PO PRN (16:20)
--- NOTE | 2018-05-05 16:34 | Magnetic Resonance Report ---
History: Bacteremia, malaise and possible osteomyelitis in the thoracic spine TECHNIQUE: Multiplanar imaging was performed using multiple pulse sequences. FINDINGS: Patient has Scheuermann's disease with irregularity of the endplates and multiple Schmorl's nodes extending from T7 through T12.. There is mild loss in height of the T8 and T9 vertebra. The disc spaces from T8 through T11 are narrowed and degenerated but have normal signal within them. A mild anterior wedge compression deformity is present involving the superior endplate of T11. The body of T11 is heterogeneous and there are ill-defined zones of sclerotic bone marrow. There is no bone marrow edema. No paraspinal inflammatory change are present. There has been no change in appearance of the spine, particularly at the T11 level compared with prior CT scans done on 05/03/18, 04/06/2018 and 01/06/2018. Small posterolateral bulges present in the right side at T7-8. There is no disc herniation. Central canal is normal in caliber. The spinal cord is normal in size signal and contour. IMPRESSION: No evidence of discitis or osteomyelitis Scheuermann's disease throughout the lower thoracic spine with loss in height of several vertebra, narrowed disc spaces and distorted endplates. The greatest deformity is at the T11 level Interpreted and Authenticated by: Santino Smith 05/05/18
--- NOTE | 2018-05-05 16:37 | Infectious Disease Prog Note ---
Subjective Patient information: Note initiated : 05/05/18 at 4:35 pm Service Date, if different from initiated Date: [] Patient: Wilman Rosas 28 y/o M admitted on 05/03/18 for Fever. Chief Complaint: [] Interval history: Patient is doing well overall. I saw him going around in the hallway. Had a low-grade fever of 38.1 see last night. Endorses back pain, denies any diarrhea , nausea, vomiting. Objective Objective Narrative: Alert oriented x3, No thrush Chest clear to auscultation Heart sounds normal, no murmurs auscultated Bowel sounds present, nontender except in left upper quadrant Tender to touch in the left upper back No splinter hemorrhages seen in hands, no Janeway lesions or Osler nodes - Vital Signs Vital signs: Vital Signs Temp Pulse Pulse Resp BP BP BP 05/05/18 15:18 124 H 20 118/72 05/05/18 15:12 145 H 05/05/18 14:03 39.1 C H 05/05/18 13:55 39.1 C H 125 H 20 132/83 05/05/18 12:00 36.9 C 115 H 20 127/78 05/05/18 08:36 37.7 C H 05/05/18 04:15 37.7 C H 105 H 20 110/61 05/04/18 23:00 38.1 C H 116 H 24 H 130/78 05/04/18 20:00 37.3 C H 98 H 18 103/63 Pulse Ox 05/05/18 15:18 98 05/05/18 15:12 05/05/18 14:03 05/05/18 13:55 100 05/05/18 12:00 98 05/05/18 08:36 05/05/18 04:15 98 05/04/18 23:00 96 05/04/18 20:00 96 Intake and Output 05/05/18 05/05/18 05/05/18 05:59 13:59 21:59 Intake Total 720 / 720 300 / 300 Output Total 400 / 400 250 / 250 Balance 320 / 320 50 / 50 Intake: Oral 720 / 720 300 / 300 Output: Void Amount 400 / 400 250 / 250 Other: Meal sandwich Breakfast Percent of Meal Consumed 25% 100% Feeding Ability Independent Assist with Tray Set Up Stool Size Moderate Stool Color Brown Stool Consistency Loose # Voids 1 # Bowel Movements 1 Intake & Output: Intake & Output 05/05/18 05/05/18 05/05/18 05:59 13:59 21:59 Intake Total 720 / 720 300 / 300 Output Total 400 / 400 250 / 250 Balance 320 / 320 50 / 50 Intake: Oral 720 / 720 300 / 300 Output: Void Amount 400 / 400 250 / 250 Other: Meal sandwich Breakfast Percent of Meal Consumed 25% 100% Feeding Ability Independent Assist with Tray Set Up Stool Size Moderate Stool Color Brown Stool Consistency Loose # Voids 1 # Bowel Movements 1 - Lab 05/04/18 04:00 05/04/18 04:00 Most recent lab results Calcium 8.1 mg/dl (8.6-10.4) L 05/04/18 04:00 Phosphorus 4.1 mg/dL (2.7-4.5) 05/04/18 04:00 Magnesium 2.1 mg/dL (1.6-2.5) 05/04/18 04:00 Microbiology 05/02/18 22:06 Blood Blood Culture - Final Staphylococcus aureus 05/03/18 18:50 Blood Blood Culture - Preliminary 05/03/18 18:50 Blood Blood Culture - Final 05/03/18 12:56 Nose - Both Right and Left MRSA (PCR) - Final 05/02/18 21:53 Blood Blood Culture - Preliminary Gram positive cocci Medications Active Medications: Acetaminophen (Tylenol) 650 mg PO Q6HP PRN PRN Reason: PAIN/FEVER > 101 Cefazolin Sodium (Ancef) 2 gm IV Q8H [facility] Enoxaparin Sodium (Lovenox) 40 mg SQ DAILY [facility] Famotidine (Pepcid) 20 mg PO BID [facility] Ibuprofen (Motrin) 400 mg PO Q4HP PRN PRN Reason: Pain Lorazepam (Ativan) 1 mg IV Q4HP PRN PRN Reason: ANXIETY/SEDATION Morphine Sulfate (Ms Contin) 60 mg PO Q8 [facility] Ondansetron HCl (Zofran) 4 mg IV Q4HP PRN PRN Reason: Nausea And Vomiting Prochlorperazine Maleate (Compazine) 12.5 mg IN Q12HP PRN PRN Reason: Nausea And Vomiting Promethazine HCl (Phenergan) 12.5 mg PO Q6HP PRN PRN Reason: Nausea And Vomiting Sodium Chloride (Saline Flush) 10 ml IV Q8 [facility] Assessment and Plan - Narrative A/P Narrative: A: 1. MSSA [place] TV endocarditis: blood Cx +ve for Staph aureus with neg mecA gene suggesting it to be MSSA - TTE showing TV vegetation. 2. Lt sided back pain, LUQ pain: pain on deep breathing, tenderness over left posterior chest raises concerns for embolic complications: seeding of lungs and pleura, and splenic emboli 3. Active IV drug use No new recommendations: - For best outcomes, pt should be placed in a SNF to prevent drug use through the PICC line - Continue IV Cefazolin 2 gm q8 hrs - will await blood Cx to be negative. Once neg for 72 hrs, a PICC line can be placed - Consider MRI of thoraco-lumbar spine to rule out any abscess in vertebrae, or OM - will decide final duration, date of follow up at time of discharge will follow Reza Mcgarry MD Infectious diseases
--- NOTE | 2018-05-05 16:53 | Magnetic Resonance Report ---
History: Back pain, bacteremia evaluate for osteomyelitis TECHNIQUE: Multiplanar imaging was performed using multiple pulse sequences. FINDINGS: There is irregularity of the endplates with formation of Schmorl's nodes from T11 through L3. There is no evidence of discitis or osteomyelitis. The L4-5 disc is normal in height but partially desiccated. There is a small broad-based posterior bulge with an annular tear. A small midline bulge is present at L5-S1 but there is no tear that level. Mild arthritis is seen in the right facet at L5-S1. This causing mild stenosis right-sided neural foramen. The spinal cord is normal and the conus is at L1. No paraspinal abscess or mass are present. IMPRESSION: No evidence of discitis or osteomyelitis. Posterior bulging disks at L4-5 and L5-S1. There is an annular tear of the L4-5 disc. Scheuermann's disease in the mid and upper lumbar spine and lower thoracic spine Interpreted and Authenticated by: Santino Smith 05/05/18
[2018-05-05] MEDS: IBUPROFEN 200 MG TABLET PO PRN ×2 (17:20→23:36)
--- NOTE | 2018-05-05 18:51 | Internal Med Progress Note ---
Medical - PN: Subj Patient information: Note initiated : 05/05/18 at 6:49 pm Service Date, if different from initiated Date: [] Patient: Wilman Rosas a 28 y/o M admitted on 05/03/18 for Fever. Chief Complaint: [] Interval history: Mr. Rosas is a 28 year old M Who presents with generalized weakness fatigue malaise fevers headaches chills, he states this been going on for a 1-2 weeks but worsened over the past 1-2 days. History is significant for endocarditis in February he was discharged to rehab facility for 6 weeks of the antibiotics he was released in March. In March he went to [facility] there was concern for possible spinal osteo- the patient left the ER AMA. Has not seen anybody since then. Has sound like a fairly recent diagnosis of renal cell carcinoma this year. After getting out of rehab he was supposed to follow-up with infectious disease and oncologist in [place] he did not follow-up with them because of transportation issues. In the ER he is found to be febrile of up to 105, mildly tachycardic, blood pressure stable. No leukocytosis and lactate was within normal limits. He is using IV methamphetamines again last time he used was last . Concern for recurrent endocarditis. CT scan of the abdomen chest and pelvis was done which showed resolution of his pulmonary septic emboli otherwise no acute pathology other than enlarging left renal tumor. The CT scan was reviewed including the past scans including the one at [facility] where there is concern for osteo-in all 3 scans were compared by the radiologist felt there is no vertebral osteomyelitis. 05/04 Some chronic pain. Occasional cough. Slept on and off last night. 05/05 Pt seen examined this AM notes was in a bit of stress, but otherwise no complaints, did not mention back pain to myself, but did note same to ID physician, Dr Mcgarry wished for MRI t spine and L spine which was ordered yesterday Blood cx neg today, to get picc xfer to med surg status. Pt had picc placed and on way back spiked fever, repeat cultures ordered 2 sets Pertinent ROS: Denies headache, dizziness Denies chest pain, palpitations Denies cough or shortness of breath Denies abdominal pain, nausea or vomiting. - Constitutional Vitals: Vital Signs Temp Pulse Resp BP Pulse Ox 101.6 F H 118 H 20 98/60 97 05/05/18 17:00 05/05/18 17:00 05/05/18 17:00 05/05/18 17:00 05/05/18 17:00 Period Temp Pulse Resp BP Sys/Wets Pulse Ox Last 24 Hr 98.4 F-102.4 F 90-145 18-24 98-132/60-83 96-100 Intake and Output 05/05/18 05/05/18 05/05/18 05:59 13:59 21:59 Intake Total 720 / 720 300 / 300 480 / 480 Output Total 400 / 400 250 / 250 Balance 320 / 320 50 / 50 480 / 480 Intake & Output: Intake & Output 05/05/18 05/05/18 05/05/18 05:59 13:59 21:59 Intake Total 720 / 720 300 / 300 480 / 480 Output Total 400 / 400 250 / 250 Balance 320 / 320 50 / 50 480 / 480 Intake: Oral 720 / 720 300 / 300 480 / 480 Output: Void Amount 400 / 400 250 / 250 Other: Meal sandwich Breakfast Dinner Percent of Meal Consumed 25% 100% 100% Feeding Ability Independent Assist with Tray Set Up Stool Size Moderate Stool Color Brown Stool Consistency Loose Liquid # Voids 1 1 # Bowel Movements 1 1 Exam: Constitutional; Afebrile, cooperative, alert, not in distress. Eyes- No icterus, , No periorbital swelling Ears- Ext ear normal, hearing normal to conversation. Neck- Midline trachea, supple Respiratory system: Air Entry equal on both sides, No crackles or wheezing, no rhonchi. CVS- Rate rhythm regular, S1,S2 heard, no gallop, no rub. systolic murmur triscuspid region. 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 Medical - PN: Obj Da - Labs CBC & Chem 7: 05/04/18 04:00 05/04/18 04:00 Labs: Abnormal Lab Results 05/04/18 05/04/18 05/04/18 11:15 04:00 04:00 Hct 40.9 L Gran % Lymph % (Auto) Lymph # (Auto) ESR Sodium Chloride Carbon Dioxide 20 L Anion Gap Calcium 8.1 L C-Reactive Protein Urine Ketones Urine Opiates Screen Suspect positive A Ur Amphetamines Screen Suspect positive A U Benzodiazepines Scrn Suspect positive A 05/03/18 05/03/18 05/02/18 23:32 18:50 23:35 Hct Gran % Lymph % (Auto) Lymph # (Auto) ESR 27 H Sodium Chloride Carbon Dioxide Anion Gap Calcium C-Reactive Protein 5.3 H Urine Ketones 5/tr A Urine Opiates Screen Ur Amphetamines Screen U Benzodiazepines Scrn 05/02/18 05/02/18 23:32 21:53 Hct 39.4 L Gran % 80.6 H Lymph % (Auto) 10.8 L Lymph # (Auto) 0.8 L ESR Sodium 129 L Chloride 94 L Carbon Dioxide 17 L Anion Gap 18.0 H Calcium C-Reactive Protein Urine Ketones Urine Opiates Screen Ur Amphetamines Screen U Benzodiazepines Scrn Meds: Medications Acetaminophen (Tylenol) 650 mg PO Q6HP PRN PRN Reason: PAIN/FEVER > 101 Cefazolin Sodium (Ancef) 2 gm IV Q8H [facility] Enoxaparin Sodium (Lovenox) 40 mg SQ DAILY [facility] Famotidine (Pepcid) 20 mg PO BID [facility] Heparin Sodium (Porcine) (Heparin Flush) 2 ml IV Q12 [facility] Ibuprofen (Motrin) 400 mg PO Q4HP PRN PRN Reason: Pain Last Admin: 05/05/18 17:20 Dose: 400 mg Lorazepam (Ativan) 1 mg IV Q4HP PRN PRN Reason: ANXIETY/SEDATION Morphine Sulfate (Ms Contin) 60 mg PO Q8 [facility] Ondansetron HCl (Zofran) 4 mg IV Q4HP PRN PRN Reason: Nausea And Vomiting Prochlorperazine Maleate (Compazine) 12.5 mg SC Q12HP PRN PRN Reason: Nausea And Vomiting Promethazine HCl (Phenergan) 12.5 mg PO Q6HP PRN PRN Reason: Nausea And Vomiting Sodium Chloride (Saline Flush) 10 ml IV Q12 [facility] Medical - PN: A/P - Time Spent With Patient Total time spent is greater than 50% in coordination of care (as documented) at patient's floor/unit and/or counseling patient: - Narrative A/P Narrative: A: *Endocarditis, 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 due to persistent fevers, previous set of blood culture are neg -ID following -UDS pending -prn benzos for withdrawal -Case management for assistance with drug abuse program and placement -f/u with ID outpt and f/u with Oncologist -ppx: [facility] Medical - PN: Qual - VTE Deep Vein Thrombosis/Pulmonary Embolism Present on Admission: No
[2018-05-05] MEDS ORDERED: 0.9 % SODIUM CHLORIDE 10 ML SYRINGE IV SCH (22:00)
[2018-05-06] MEDS: IBUPROFEN 200 MG TABLET PO PRN ×3 (03:38→17:52)
[2018-05-06] MEDS: ACETAMINOPHEN 325 MG TABLET PO PRN ×3 (04:28→17:49)
[2018-05-06] MEDS: morphine 30 MG TAB.SR.12H PO SCH ×3 (06:10→21:26)
[2018-05-06] MEDS: ceFAZolin 1 GM VIAL IV SCH ×3 (06:11→21:26)
[2018-05-06 08:50] LABS: Basophils # (Auto) 0 K/mcL (0.0-0.3); Basophils % (Auto) 0.4 % (0.0-2.0); Eosinophils # (Auto) 0.3 K/mcL (0.0-0.7); Eosinophils % (Auto) 3.1 % (0.0-7.0); Granulocytes % (Auto) 68.2 % (38.0-78.0); Lymphocytes # (Auto) 1.7 K/mcL (1.5-4.8); Lymphocytes % (Auto) 16.4 % (15.5-49.0); Mean Cell Volume 87.1 fL (80.0-100.0); Mean Corpuscular HGB Conc 34.5 g/dL (31.0-36.0); Monocytes # (Auto) 1.2 K/mcL (0.1-0.9); Monocytes % (Auto) 11.9 % (1.0-12.0); Platelet Count 208 K/mcL (140-440); RBC 4.25 M/mcL (4.50-5.90); Red Cell Distribution Width 13.9 % (11.5-14.5)
[2018-05-06] MEDS ORDERED: ENOXAPARIN 40 MG/0.4 ML SYRINGE SQ SCH (09:00)
[2018-05-06 09:08] LABS: ALT/SGPT 7 U/l (0-40); Albumin 2.9 gm/dL (3.2-5.2); Albumin/Globulin Ratio 0.8 (1.0-2.3); Alkaline Phosphatase 60 U/L (39-117); Bilirubin,Direct < 0.2 mg/dL (0.0-0.3); Blood Urea Nitrogen 11 mg/dl (6-20); Gamma Glutamyl Transpeptidase 13 U/L (8-61); Uric Acid 4.3 mg/dL (2.5-8.0)
[2018-05-06] MEDS: FAMOTIDINE 20 MG TABLET PO SCH ×2 (10:31→20:09)
[2018-05-06] MEDS: 0.9 % SODIUM CHLORIDE 10 ML SYRINGE IV SCH ×2 (10:33→20:09)
--- NOTE | 2018-05-06 11:21 | Ultrasound Report ---
History: Left arm swelling FINDINGS: There is acute deep venous thrombosis of the left basilic vein. It extends from the antecubital fossa up to the axillary vein. There is no thrombus in the subclavian or jugular vein. The basilic vein is completely occluded. The brachial and cephalic veins are normal. No clot is seen in the forearm. IMPRESSION: Acute deep venous thrombosis of the left basilic vein extending up to the axilla Dr. Cararsco was called with the results Interpreted and Authenticated by: Santino Smith 05/06/18
[2018-05-06] MEDS: APIXABAN 5 MG TABLET PO SCH ×2 (12:48→20:09)
[2018-05-06] MEDS: LORazepam 2 MG/ML VIAL IV PRN ×2 (12:59→20:11)
[2018-05-06] MEDS ORDERED: VANCOMYCIN PER PHARMACY IV ONE (13:43)
[2018-05-06 14:13] LABS: Amphetamine Screen,Urine NONE DETECTED (NONDETECTED); Benzodiazepines Screen,Urine SUSPECT POSITIVE (NONDETECTED); Cocaine Screen,Urine NONE DETECTED (NONDETECTED); Opiate Screen,Urine SUSPECT POSITIVE (NONDETECTED); Oxycodone, Urine Screen NONE DETECTED (NONDETECTED)
[2018-05-06] MEDS ORDERED: VANCOMYCIN PER PHARMACY IV SCH (14:15)
[2018-05-06] MEDS ORDERED: VANCOMYCIN 2,000 MG in 0.9 % SODIUM CHLORIDE 500 ML IV ONE (15:00)
[2018-05-06] MEDS ORDERED: IOPAMIDOL 100 ML BOTTLE IV ONE (15:29)
--- NOTE | 2018-05-06 15:44 | Internal Med Progress Note ---
Medical - PN: Subj Patient information: Note initiated : 05/06/18 at 3:42 pm Service Date, if different from initiated Date: [] Patient: Wilman Rosas a 28 y/o M admitted on 05/03/18 for Fever. Chief Complaint: [] Interval history: Mr. Rosas is a 28 year old M Who presents with generalized weakness fatigue malaise fevers headaches chills, he states this been going on for a 1-2 weeks but worsened over the past 1-2 days. History is significant for endocarditis in February he was discharged to rehab facility for 6 weeks of the antibiotics he was released in March. In March he went to [facility] ER there was concern for possible spinal osteo- the patient left the ER AMA. Has not seen anybody since then. Has sound like a fairly recent diagnosis of renal cell carcinoma this year. After getting out of rehab he was supposed to follow-up with infectious disease and oncologist in [place] he did not follow-up with them because of transportation issues. In the ER he is found to be febrile of up to 105, mildly tachycardic, blood pressure stable. No leukocytosis and lactate was within normal limits. He is using IV methamphetamines again last time he used was last . Concern for recurrent endocarditis. CT scan of the abdomen chest and pelvis was done which showed resolution of his pulmonary septic emboli otherwise no acute pathology other than enlarging left renal tumor. The CT scan was reviewed including the past scans including the one at [facility] where there is concern for osteo-in all 3 scans were compared by the radiologist felt there is no vertebral osteomyelitis. 05/04 Some chronic pain. Occasional cough. Slept on and off last night. 05/05 Pt seen examined this AM notes was in a bit of stress, but otherwise no complaints, did not mention back pain to myself, but did note same to ID physician, Dr Mcgarry wished for MRI t spine and L spine which was ordered yesterday Blood cx neg today, to get picc xfer to med surg status. Pt had picc placed and on way back spiked fever, repeat cultures ordered 2 sets 05/06 Patient seen and examined, no acute overnight events. Patient has pain in the left upper extremity. Swelling and redness around the elbow joint near the IV insertion site. Duplex scan was done which is positive for a DVT. Started the patient on Eliquis. Reviewed risk benefits and complications with the patient he agreed for therapy. Total of [address] scan of the arm ordered for spreading cellulitis vancomycin started. Cultures negative so far Pertinent ROS: Denies headache, dizziness Denies chest pain, palpitations Denies cough or shortness of breath Denies abdominal pain, nausea or vomiting. - Constitutional Vitals: Vital Signs Temp Pulse Resp BP Pulse Ox 100.3 F H 113 H 22 95/63 100 05/06/18 12:52 05/06/18 12:52 05/06/18 12:52 05/06/18 12:52 05/06/18 12:52 Period Temp Pulse Resp BP Sys/West Pulse Ox Last 24 Hr 96.5 F-103.0 F 110-127 20-30 89-109/46-73 94-100 Intake and Output 05/06/18 05/06/18 05/06/18 05:59 13:59 21:59 Intake Total 785 / 785 1020 / 1020 Balance 785 / 785 1020 / 1020 Intake & Output: Intake & Output 05/06/18 05/06/18 05/06/18 05:59 13:59 21:59 Intake Total 785 / 785 1020 / 1020 Balance 785 / 785 1020 / 1020 Intake: Oral 785 / 785 1020 / 1020 Other: Meal Breakfast Percent of Meal Consumed 100% Exam: Constitutional; Afebrile, cooperative, alert, not in distress. Eyes- No icterus, , No periorbital swelling Ears- Ext ear normal, hearing normal to conversation. Neck- Midline trachea, supple Respiratory system: Air Entry equal on both sides, No crackles or wheezing, no rhonchi. CVS- Rate rhythm regular, S1,S2 heard, no gallop, no rub. 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 Left upper extremity- swelling aroudn eblow. erythema extending from mid hand to upper 2/3 arm. Medical - PN: Obj Da - Labs CBC & Chem 7: 05/06/18 08:10 05/06/18 08:10 Labs: Abnormal Lab Results 05/06/18 05/06/18 05/06/18 13:00 09:46 08:10 RBC Hgb Hct [place] # (Auto) ESR Carbon Dioxide Glucose 108 H Calcium 8.3 L C-Reactive Protein Albumin 2.9 L Albumin/Globulin Ratio 0.8 L Urine Opiates Screen Suspect positive A Ur Amphetamines Screen U Benzodiazepines Scrn Suspect positive A Rheumatoid Factor 16 H 05/06/18 05/04/18 05/04/18 08:10 11:15 04:00 RBC 4.25 L Hgb 12.8 L Hct 37.0 L [place] # (Auto) 1.2 H ESR Carbon Dioxide 20 L Glucose Calcium 8.1 L C-Reactive Protein Albumin Albumin/Globulin Ratio Urine Opiates Screen Suspect positive A Ur Amphetamines Screen Suspect positive A U Benzodiazepines Scrn Suspect positive A Rheumatoid Factor 05/04/18 05/03/18 05/03/18 04:00 23:32 18:50 RBC Hgb Hct 40.9 L [place] # (Auto) ESR 27 H Carbon Dioxide Glucose Calcium C-Reactive Protein 5.3 H Albumin Albumin/Globulin Ratio Urine Opiates Screen Ur Amphetamines Screen U Benzodiazepines Scrn Rheumatoid Factor Meds: Medications Acetaminophen (Tylenol) 650 mg PO Q6HP PRN PRN Reason: PAIN/FEVER > 101 Last Admin: 05/06/18 12:48 Dose: 650 mg Cefazolin Sodium (Ancef) 2 gm IV Q8H [facility] Last Admin: 05/06/18 14:30 Dose: 2 gm Famotidine (Pepcid) 20 mg PO BID [facility] Last Admin: 05/06/18 10:31 Dose: 20 mg Heparin Sodium (Porcine) (Heparin Flush) 2 ml IV Q12 [facility] Last Admin: 05/06/18 10:32 Dose: 2 ml Vancomycin HCl 2,000 mg/ (Sodium Chloride) 500 mls @ 250 mls/hr IV ONCE ONE Stop: 05/06/18 16:59 Vancomycin HCl 1,500 mg/ (Sodium Chloride) 500 mls @ 333.3 mls/hr IV Q12H [facility] Ibuprofen (Motrin) 400 mg PO Q4HP PRN PRN Reason: Pain Last Admin: 05/06/18 12:57 Dose: 400 mg Lorazepam (Ativan) 1 mg IV Q4HP PRN PRN Reason: ANXIETY/SEDATION Last Admin: 05/06/18 12:59 Dose: 1 mg Morphine Sulfate (Ms Contin) 60 mg PO Q8 [facility] Last Admin: 05/06/18 14:28 Dose: 60 mg Ondansetron HCl (Zofran) 4 mg IV Q4HP PRN PRN Reason: Nausea And Vomiting Prochlorperazine Maleate (Compazine) 12.5 mg [place] Q12HP PRN PRN Reason: Nausea And Vomiting Promethazine HCl (Phenergan) 12.5 mg PO Q6HP PRN PRN Reason: Nausea And Vomiting Sodium Chloride (Saline Flush) 10 ml IV Q12 [facility] Last Admin: 05/06/18 10:33 Dose: 10 ml Vancomycin HCl (Vancomycin Per Pharmacy) 1 order IV UD [facility] Medical - PN: A/P - Time Spent With Patient Total time spent is greater than 50% in coordination of care (as documented) at patient's floor/unit and/or counseling patient: - Narrative A/P Narrative: A: *Endocarditis, 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 -Po eliquis 5mg bid x 3 months for DVT -Blood cultures repeat ordered. due to persistent fevers, previous set of blood culture are neg, neg growth so far. -ID following -UDS shows benzo and opiates, neg meth -prn benzos for withdrawal -Case management for assistance with drug abuse program and placement -f/u with ID outpt and f/u with Oncologist -ppx: [facility] - PN: Qual - VTE Deep Vein Thrombosis/Pulmonary Embolism Present on Admission: No
--- NOTE | 2018-05-06 15:49 | Cat Scan Report ---
History: Fever edema and erythema in the left upper arm and antecubital fossa TECHNIQUE: The left arm was imaged following injection of intravenous contrast scanning from the top of the shoulder to the proximal forearm. Coronal and oblique sagittal reformats were created. Radiation exposure was limited using dose reduction technology. FINDINGS: There is thrombosis of the basilic vein in the left arm extending into the distal portion of the axillary vein. The proximal portion of the axillary vein and subclavian veins are normal. Brachial and cephalic veins are normal. The thrombus does not extend below the elbow. Surrounding the thrombosed vein there is inflammation of the deep fascia extending to the subcutaneous tissues along the medial side of the upper arm. The cellulitis extends to the posterior medial side of the forearm. There is no evidence of an abscess or soft tissue mass. The underlying bones are normal without evidence of osteomyelitis, fracture or destructive bone lesion. Beneath the medial epicondyle there is a 1.5 x 3 mm dystrophic soft tissue calcification. This may be from previous injury or chronic inflammation. No donor site is identified. The elbow is otherwise normal. No abnormality is seen within the shoulder joint. IMPRESSION: Thrombophlebitis and cellulitis extending from the level of the shoulder to the proximal forearm Interpreted and Authenticated by: Santino Smith 05/06/18
--- NOTE | 2018-05-06 16:43 | Infectious Disease Prog Note ---
Subjective Patient information: Note initiated : 05/06/18 at 4:41 pm Service Date, if different from initiated Date: [] Patient: Wilman Rosas 28 y/o M admitted on 05/03/18 for Fever. Chief Complaint: [] Interval history: Patient lying in the bed, drowsy. Complained of pain, redness and swelling of the left upper arm when woken up. Multiple episodes of fever last night. Denies any nausea, vomiting, diarrhea. Had a PICC line placed in the right arm yesterday. It has been a concern about patient using IV drugs in the bathroom, although not confirmed. Objective Objective Narrative: Drowsy but arousable No thrush Chest clear to auscultation Heart sounds normal, no murmurs heard Bowel sounds present, nontender Left upper extremity: Is swollen/red with redness spreading beyond the area of marking extending from elbow towards axilla. The arm is tender to touch along with some pain at the shoulder joint on movement. No visible or expressed drainage - Vital Signs Vital signs: Vital Signs Temp Pulse Resp BP Pulse Ox 05/06/18 16:00 36.8 C 102 H 20 101/71 100 05/06/18 12:52 37.9 C H 113 H 22 95/63 100 05/06/18 12:48 37.9 C H 05/06/18 11:39 36.5 C 114 H 102/70 05/06/18 07:35 35.8 C L 117 H 22 109/73 97 05/06/18 05:13 37.8 C H 05/06/18 04:28 37.7 C H 05/06/18 04:21 37.7 C H 05/06/18 03:35 37.5 C H 110 H 24 H 92/61 97 05/06/18 00:37 38.5 C H 22 05/05/18 23:21 39.4 C H 127 H 28 H 89/54 96 05/05/18 23:13 39.4 C H 05/05/18 22:30 39.1 C H 118 H 30 H 93/55 95 05/05/18 22:28 39.1 C H 05/05/18 19:06 38.1 C H 126 H 24 H 96/46 94 05/05/18 17:00 38.7 C H 118 H 20 98/60 97 Intake and Output 05/06/18 05/06/18 05/06/18 05:59 13:59 21:59 Intake Total 785 / 785 1020 / 1020 Balance 785 / 785 1020 / 1020 Intake: Oral 785 / 785 1020 / 1020 Other: Meal Breakfast Percent of Meal Consumed 100% Intake & Output: Intake & Output 05/06/18 05/06/18 05/06/18 05:59 13:59 21:59 Intake Total 785 / 785 1020 / 1020 Balance 785 / 785 1020 / 1020 Intake: Oral 785 / 785 1020 / 1020 Other: Meal Breakfast Percent of Meal Consumed 100% - Lab 05/06/18 08:10 05/06/18 08:10 Most recent lab results Calcium 8.3 mg/dl (8.6-10.4) L 05/06/18 08:10 Phosphorus 3.5 mg/dL (2.7-4.5) 05/06/18 08:10 Magnesium 1.9 mg/dL (1.6-2.5) 05/06/18 08:10 Microbiology 05/05/18 14:08 Blood Blood Culture - Preliminary 05/03/18 18:50 Blood Blood Culture - Preliminary 05/02/18 22:06 Blood Blood Culture - Final Staphylococcus aureus 05/03/18 18:50 Blood Blood Culture - Final 05/03/18 12:56 Nose - Both Right and Left MRSA (PCR) - Final 05/02/18 21:53 Blood Blood Culture - Preliminary Gram positive cocci Medications Active Medications: Acetaminophen (Tylenol) 650 mg PO Q6HP PRN PRN Reason: PAIN/FEVER > 101 Last Admin: 05/06/18 12:48 Dose: 650 mg Admin: 05/06/18 04:28 Dose: 650 mg Admin: 05/05/18 22:28 Dose: 650 mg Cefazolin Sodium (Ancef) 2 gm IV Q8H [facility] Last Admin: 05/06/18 14:30 Dose: 2 gm Admin: 05/06/18 06:11 Dose: 2 gm Admin: 05/05/18 21:39 Dose: 2 gm Famotidine (Pepcid) 20 mg PO BID [facility] Last Admin: 05/06/18 10:31 Dose: 20 mg Admin: 05/05/18 21:32 Dose: 20 mg Heparin Sodium (Porcine) (Heparin Flush) 2 ml IV Q12 [facility] Last Admin: 05/06/18 10:32 Dose: 2 ml Admin: 05/05/18 21:32 Dose: 2 ml Vancomycin HCl 2,000 mg/ (Sodium Chloride) 500 mls @ 250 mls/hr IV ONCE ONE Stop: 05/06/18 16:59 Vancomycin HCl 1,500 mg/ (Sodium Chloride) 500 mls @ 333.3 mls/hr IV Q12H [facility] Ibuprofen (Motrin) 400 mg PO Q4HP PRN PRN Reason: Pain Last Admin: 05/06/18 12:57 Dose: 400 mg Admin: 05/06/18 03:38 Dose: 400 mg Admin: 05/05/18 23:36 Dose: 400 mg Admin: 05/05/18 17:20 Dose: 400 mg Lorazepam (Ativan) 1 mg IV Q4HP PRN PRN Reason: ANXIETY/SEDATION Last Admin: 05/06/18 12:59 Dose: 1 mg Admin: 05/05/18 22:32 Dose: 1 mg Morphine Sulfate (Ms Contin) 60 mg PO Q8 [facility] Last Admin: 05/06/18 14:28 Dose: 60 mg Admin: 05/06/18 06:10 Dose: 60 mg Admin: 05/05/18 21:33 Dose: 60 mg Ondansetron HCl (Zofran) 4 mg IV Q4HP PRN PRN Reason: Nausea And Vomiting Prochlorperazine Maleate (Compazine) 12.5 mg [place] Q12HP PRN PRN Reason: Nausea And Vomiting Promethazine HCl (Phenergan) 12.5 mg PO Q6HP PRN PRN Reason: Nausea And Vomiting Sodium Chloride (Saline Flush) 10 ml IV Q12 [facility] Last Admin: 05/06/18 10:33 Dose: 10 ml Admin: 05/05/18 21:32 Dose: 10 ml Vancomycin HCl (Vancomycin Per Pharmacy) 1 order IV UD [facility] Assessment and Plan - Narrative A/P Narrative: A: 1. MSSA [place] TV endocarditis: blood Cx +ve for Staph aureus with neg mecA gene suggesting it to be MSSA - TTE showing TV vegetation. 2. Lt upper extremity swelling and signs of inflammation: Secondary to local cellulitis and associated DVT. CT negative for any necrotizing infection 3. Active IV drug use Recommendations - For best outcomes, pt should be placed in a SNF to prevent drug use through the PICC line - Continue IV Cefazolin 2 gm q8 hrs -Start IV vancomycin with pharmacy assisted dosing. Target Vanco levels 10-20 [address] patient on telemetry -Agree with repeating blood cultures because of recurrent fevers Will decide final duration of therapy and follow-up at time of discharge Reza Mcgarry MD Infectious diseases
[2018-05-06] MEDS ORDERED: ACETAMINOPHEN 500 MG TABLET PO PRN (18:08)
[2018-05-06] MEDS: KETOROLAC 30 MG/ML VIAL IV SCH ×2 (20:08→23:53)
[2018-05-06] MEDS ORDERED: traZODone HCL 100 MG TABLET PO SCH (22:00)
[2018-05-06] MEDS ORDERED: OLANZapine 5 MG TABLET PO SCH (22:12)
[2018-05-06] MEDS ORDERED: IPRATROPIUM/ALBUTEROL 3 ML AMPUL.NEB NEB ONE (22:20)
[2018-05-06] MEDS: ACETAMINOPHEN 500 MG TABLET PO SCH (23:54)
[2018-05-07] MEDS: KETOROLAC 30 MG/ML VIAL IV SCH ×3 (05:23→17:45)
[2018-05-07] MEDS: morphine 30 MG TAB.SR.12H PO SCH ×3 (05:24→21:45)
[2018-05-07] MEDS: ceFAZolin 1 GM VIAL IV SCH ×3 (05:24→21:45)
[2018-05-07] MEDS: ACETAMINOPHEN 500 MG TABLET PO SCH ×3 (05:24→17:52)
[2018-05-07 06:14] LABS: Basophils # (Auto) 0 K/mcL (0.0-0.3); Basophils % (Auto) 0.2 % (0.0-2.0); Eosinophils # (Auto) 0.5 K/mcL (0.0-0.7); Eosinophils % (Auto) 4.7 % (0.0-7.0); Granulocytes % (Auto) 70.3 % (38.0-78.0); Lymphocytes # (Auto) 1.6 K/mcL (1.5-4.8); Lymphocytes % (Auto) 15.2 % (15.5-49.0); Mean Cell Volume 88.2 fL (80.0-100.0); Mean Corpuscular Hemoglobin 29.1 pg (26.0-34.0); Monocytes % (Auto) 9.6 % (1.0-12.0); Platelet Count 241 K/mcL (140-440); RBC 3.97 M/mcL (4.50-5.90); Red Cell Distribution Width 13.8 % (11.5-14.5)
[2018-05-07 06:48] LABS: ALT/SGPT 6 U/l (0-40); Albumin 3.2 gm/dL (3.2-5.2); Albumin/Globulin Ratio 0.9 (1.0-2.3); Alkaline Phosphatase 69 U/L (39-117); Bilirubin,Direct < 0.2 mg/dL (0.0-0.3); Blood Urea Nitrogen 16 mg/dl (6-20); Gamma Glutamyl Transpeptidase 10 U/L (8-61); Uric Acid 3.9 mg/dL (2.5-8.0)
[2018-05-07] MEDS ORDERED: morphine 30 MG TAB.SR.12H PO ONE (09:00)
[2018-05-07] MEDS: FAMOTIDINE 20 MG TABLET PO SCH ×2 (09:02→21:46)
[2018-05-07] MEDS: APIXABAN 5 MG TABLET PO SCH ×2 (09:02→21:46)
[2018-05-07] MEDS: 0.9 % SODIUM CHLORIDE 10 ML SYRINGE IV SCH ×2 (09:03→21:47)
[2018-05-07] MEDS ORDERED: VANCOMYCIN 1,500 MG in 0.9 % SODIUM CHLORIDE 500 ML IV SCH (10:00)
[2018-05-07] MEDS ORDERED: NICOTINE 14 MG PATCH TOPICAL SCH (10:00)
[2018-05-07] MEDS: LINEZOLID 600 MG TABLET PO SCH ×2 (11:34→21:45)
--- NOTE | 2018-05-07 11:34 | Internal Med Progress Note ---
Medical - PN: Subj Patient information: Note initiated : 05/07/18 at 11:31 am Service Date, if different from initiated Date: [] Patient: Wilman Rosas a 28 y/o M admitted on 05/03/18 for Fever. Chief Complaint: [] Interval history: Mr. Rosas is a 28 year old M Who presents with generalized weakness fatigue malaise fevers headaches chills, he states this been going on for a 1-2 weeks but worsened over the past 1-2 days. History is significant for endocarditis in February he was discharged to rehab facility for 6 weeks of the antibiotics he was released in March. In March he went to [facility] ER there was concern for possible spinal osteo- the patient left the ER AMA. Has not seen anybody since then. Has sound like a fairly recent diagnosis of renal cell carcinoma this year. After getting out of rehab he was supposed to follow-up with infectious disease and oncologist in [place] he did not follow-up with them because of transportation issues. In the ER he is found to be febrile of up to 105, mildly tachycardic, blood pressure stable. No leukocytosis and lactate was within normal limits. He is using IV methamphetamines again last time he used was last . Concern for recurrent endocarditis. CT scan of the abdomen chest and pelvis was done which showed resolution of his pulmonary septic emboli otherwise no acute pathology other than enlarging left renal tumor. The CT scan was reviewed including the past scans including the one at [facility] where there is concern for osteo-in all 3 scans were compared by the radiologist felt there is no vertebral osteomyelitis. 05/04 Some chronic pain. Occasional cough. Slept on and off last night. 05/05 Pt seen examined this AM notes was in a bit of stress, but otherwise no complaints, did not mention back pain to myself, but did note same to ID physician, Dr Mcgarry wished for MRI t spine and L spine which was ordered yesterday Blood cx neg today, to get picc xfer to med surg status. Pt had picc placed and on way back spiked fever, repeat cultures ordered 2 sets 05/06 Patient seen and examined, no acute overnight events. Patient has pain in the left upper extremity. Swelling and redness around the elbow joint near the IV insertion site. Duplex scan was done which is positive for a DVT. Started the patient on Eliquis. Reviewed risk benefits and complications with the patient he agreed for therapy. Total of [address] scan of the arm ordered for spreading cellulitis vancomycin started. Cultures negative so far 05/07 Patient seen and examined, overnight had some fever and tachycardia fever resolved. Left upper extremity DVT on Eliquis, left upper extremity cellulitis was treated with IV vancomycin will now be switched to Zyvox as per ID recommendations doing well. EKG checked to evaluate for any cardiac blocks and she only has sinus tachycardia. Patient to get nicotine patch. home dose of ms contin verified its 90mg, will change dose to 90mg Pertinent ROS: Denies headache, dizziness Denies chest pain, palpitations Denies cough or shortness of breath Denies abdominal pain, nausea or vomiting. - Constitutional Vitals: Vital Signs Temp Pulse Resp BP Pulse Ox 96.0 F L 110 H 24 H 135/86 95 05/07/18 06:50 05/07/18 04:00 05/07/18 06:50 05/07/18 06:50 05/07/18 06:50 Period Temp Pulse Resp BP Sys/West Pulse Ox Last 24 Hr 96.0 F-102.3 F 102-126 20-24 94-135/48-86 90-100 Intake and Output 05/06/18 05/07/18 05/07/18 21:59 05:59 13:59 Intake Total 600 / 600 1300 / 1300 Output Total 225 / 225 Balance 600 / 600 1300 / 1300 -225 / -225 Weight 190 lb 190 lb Patient Weight 05/08/18 05:59 Weight 190 lb Intake & Output: Intake & Output 05/06/18 05/07/18 05/07/18 21:59 05:59 13:59 Intake Total 600 / 600 1300 / 1300 Output Total 225 / 225 Balance 600 / 600 1300 / 1300 -225 / -225 Weight 190 lb 190 lb Intake: IV 500 / 500 Oral 600 / 600 800 / 800 Output: Void Amount 225 / 225 Other: # Voids 2 Exam: Constitutional; Afebrile, cooperative, alert, not in distress. Eyes- No icterus, , No periorbital swelling Ears- Ext ear normal, hearing normal to conversation. Neck- Midline trachea, supple Respiratory system: Air Entry equal on both sides, No crackles or wheezing, no rhonchi. CVS- Rate rhythm regular, S1,S2 heard, no gallop, no rub. 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 Medical - PN: Obj Da - Labs CBC & Chem 7: 05/07/18 04:00 05/07/18 04:00 Labs: Abnormal Lab Results 05/07/18 05/07/18 05/06/18 04:00 04:00 13:00 RBC 3.97 L Hgb 11.6 L Hct 35.0 L Lymph % (Auto) 15.2 L Glynn # (Auto) 1.0 H Glucose 117 H Calcium 8.5 L Lactate Dehydrogenase 251 H Albumin Albumin/Globulin Ratio 0.9 L Urine Opiates Screen Suspect positive A Ur Amphetamines Screen U Benzodiazepines Scrn Suspect positive A Rheumatoid Factor 05/06/18 05/06/18 05/06/18 09:46 08:10 08:10 RBC 4.25 L Hgb 12.8 L Hct 37.0 L Lymph % (Auto) Glynn # (Auto) 1.2 H Glucose 108 H Calcium 8.3 L Lactate Dehydrogenase Albumin 2.9 L Albumin/Globulin Ratio 0.8 L Urine Opiates Screen Ur Amphetamines Screen U Benzodiazepines Scrn Rheumatoid Factor 16 H 05/04/18 11:15 RBC Hgb Hct Lymph % (Auto) Glynn # (Auto) Glucose Calcium Lactate Dehydrogenase Albumin Albumin/Globulin Ratio Urine Opiates Screen Suspect positive A Ur Amphetamines Screen Suspect positive A U Benzodiazepines Scrn Suspect positive A Rheumatoid Factor Meds: Medications Acetaminophen (Tylenol) 1,000 mg PO Q6H [facility] Last Admin: 05/07/18 05:24 Dose: 1,000 mg Albuterol/Ipratropium (Duoneb) 3 ml NEB Q6HRT [facility] Cefazolin Sodium (Ancef) 2 gm IV Q8H [facility] Last Admin: 05/07/18 05:24 Dose: 2 gm Famotidine (Pepcid) 20 mg PO BID [facility] Last Admin: 05/07/18 09:02 Dose: 20 mg Heparin Sodium (Porcine) (Heparin Flush) 2 ml IV Q12 [facility] Last Admin: 05/07/18 09:03 Dose: 2 ml Ketorolac Tromethamine (Toradol) 30 mg IV Q6 [facility] Stop: 05/08/18 18:07 Last Admin: 05/07/18 05:23 Dose: 30 mg Linezolid (Zyvox) 600 mg PO Q12 [facility] Lorazepam (Ativan) 1 mg IV Q4HP PRN PRN Reason: ANXIETY/SEDATION Last Admin: 05/06/18 20:11 Dose: 1 mg Morphine Sulfate (Ms Contin) 90 mg PO Q8 [facility] Nicotine (Nicoderm) 14 mg TOPICAL DAILY@1000 [facility] Ondansetron HCl (Zofran) 4 mg IV Q4HP PRN PRN Reason: Nausea And Vomiting Prochlorperazine Maleate (Compazine) 12.5 mg SD Q12HP PRN PRN Reason: Nausea And Vomiting Promethazine HCl (Phenergan) 12.5 mg PO Q6HP PRN PRN Reason: Nausea And Vomiting Sodium Chloride (Saline Flush) 10 ml IV Q12 [facility] Last Admin: 05/07/18 09:03 Dose: 10 ml Medical - PN: A/P - Time Spent With Patient Total time spent is greater than 50% in coordination of care (as documented) at patient's floor/unit and/or counseling patient: - Narrative A/P Narrative: A: *Endocarditis, 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 due to persistent fevers, previous set of blood culture are neg, neg growth so far. -ID following,a ppreciate input -ECG shows sinus tach, no blocks, will continue with daily ecg for now rather than tele monitoring. -UDS shows benzo and opiates, neg meth -prn benzos for withdrawal -Case management for assistance with drug abuse program and placement -f/u with ID outpt and f/u with urologist for RCC as outpatient -I reviwed the note from Dr Shelley, he has RCC likely and was offered nephrectomy by Dr Reveles, and Dr Shelley, the patient did not follow up after, notes he was told to go to [facility] but has not since. I reviewed the importance of having the tumor treated before it can spread. He verbalized understanding. -ppx: Lovenox Medical - PN: Qual - VTE Deep Vein Thrombosis/Pulmonary Embolism Present on Admission: No
[2018-05-07] MEDS: LORazepam 2 MG/ML VIAL IV PRN ×2 (11:51→22:01)
--- NOTE | 2018-05-07 21:12 | Infectious Disease Prog Note ---
Subjective Patient information: Note initiated : 05/07/18 at 9:07 pm Service Date, if different from initiated Date: [] Patient: Wilman Rosas 28 y/o M admitted on 05/03/18 for Fever. Chief Complaint: [] Interval history: Pt reports feeling better than yesterday. His arm pain is better. Still had few episodes of fever last night. No nausea/vomiting/diarrhea. No pain at PICC line site. Objective Objective Narrative: ao x 3, in nad chest cta s1 s2 normal bs ++ nttd no edema no peripheral signs of endocarditis The left arm: redness intervally improved, still photographer to touch and firm - Vital Signs Vital signs: Vital Signs Temp Pulse Pulse Resp BP BP Pulse Ox 05/07/18 16:00 37.3 C H 20 127/80 96 05/07/18 12:00 36.9 C 24 H 107/72 95 05/07/18 06:50 35.6 C L 24 H 135/86 95 05/07/18 04:00 36.9 C 110 H 22 97/65 97 05/06/18 23:51 37.7 C H 118 H 24 H 117/74 94 05/06/18 22:17 121 H 20 Intake and Output 05/07/18 05/07/18 05/07/18 05:59 13:59 21:59 Intake Total 1300 / 1300 480 / 480 500 / 500 Output Total 225 / 225 Balance 1300 / 1300 255 / 255 500 / 500 Intake: IV 500 / 500 Oral 800 / 800 480 / 480 500 / 500 Output: Void Amount 225 / 225 Other: Meal Breakfast Percent of Meal Consumed 100% Feeding Ability Independent # Voids 2 Weight 86.183 kg Patient Weight 05/08/18 05:59 Weight 86.183 kg Intake & Output: Intake & Output 05/07/18 05/07/18 05/07/18 05:59 13:59 21:59 Intake Total 1300 / 1300 480 / 480 500 / 500 Output Total 225 / 225 Balance 1300 / 1300 255 / 255 500 / 500 Weight 86.183 kg Intake: IV 500 / 500 Oral 800 / 800 480 / 480 500 / 500 Output: Void Amount 225 / 225 Other: Meal Breakfast Percent of Meal Consumed 100% Feeding Ability Independent # Voids 2 - Lab 05/07/18 04:00 05/07/18 04:00 Most recent lab results Calcium 8.5 mg/dl (8.6-10.4) L 05/07/18 04:00 Phosphorus 3.5 mg/dL (2.7-4.5) 05/07/18 04:00 Magnesium 2.1 mg/dL (1.6-2.5) 05/07/18 04:00 Microbiology 05/03/18 18:50 Blood Blood Culture - Preliminary 05/05/18 16:59 Blood Blood Culture - Preliminary 05/05/18 14:08 Blood Blood Culture - Preliminary 05/02/18 22:06 Blood Blood Culture - Final Staphylococcus aureus 05/03/18 18:50 Blood Blood Culture - Final 05/03/18 12:56 Nose - Both Right and Left MRSA (PCR) - Final 05/02/18 21:53 Blood Blood Culture - Preliminary Gram positive cocci Medications Active Medications: Acetaminophen (Tylenol) 1,000 mg PO Q6H [facility] Last Admin: 05/07/18 17:52 Dose: 1,000 mg Admin: 05/07/18 11:43 Dose: 1,000 mg Admin: 05/07/18 05:24 Dose: 1,000 mg Admin: 05/06/18 23:54 Dose: 1,000 mg Albuterol/Ipratropium (Duoneb) 3 ml NEB Q6HRT [facility] Cefazolin Sodium (Ancef) 2 gm IV Q8H [facility] Last Admin: 05/07/18 13:36 Dose: 2 gm Admin: 05/07/18 05:24 Dose: 2 gm Admin: 05/06/18 21:26 Dose: 2 gm Admin: 05/06/18 14:30 Dose: 2 gm Admin: 05/06/18 06:11 Dose: 2 gm Admin: 05/05/18 21:39 Dose: 2 gm Famotidine (Pepcid) 20 mg PO BID [facility] Last Admin: 05/07/18 09:02 Dose: 20 mg Admin: 05/06/18 20:09 Dose: 20 mg Admin: 05/06/18 10:31 Dose: 20 mg Admin: 05/05/18 21:32 Dose: 20 mg Heparin Sodium (Porcine) (Heparin Flush) 2 ml IV Q12 [facility] Last Admin: 05/07/18 09:03 Dose: 2 ml Admin: 05/06/18 21:26 Dose: 2 ml Admin: 05/06/18 10:32 Dose: 2 ml Admin: 05/05/18 21:32 Dose: 2 ml Ketorolac Tromethamine (Toradol) 30 mg IV Q6 [facility] Stop: 05/08/18 18:07 Last Admin: 05/07/18 17:45 Dose: 30 mg Admin: 05/07/18 11:43 Dose: 30 mg Admin: 05/07/18 05:23 Dose: 30 mg Admin: 05/06/18 23:53 Dose: 30 mg Admin: 05/06/18 20:08 Dose: 30 mg Linezolid (Zyvox) 600 mg PO Q12 [facility] Last Admin: 05/07/18 11:34 Dose: 600 mg Lorazepam (Ativan) 1 mg IV Q4HP PRN PRN Reason: ANXIETY/SEDATION Last Admin: 05/07/18 11:51 Dose: 1 mg Admin: 05/06/18 20:11 Dose: 1 mg Admin: 05/06/18 12:59 Dose: 1 mg Admin: 05/05/18 22:32 Dose: 1 mg Morphine Sulfate (Ms Contin) 90 mg PO Q8 [facility] Last Admin: 05/07/18 13:35 Dose: 90 mg Nicotine (Nicoderm) 14 mg TOPICAL DAILY@1000 [facility] Last Admin: 05/07/18 11:34 Dose: 14 mg Ondansetron HCl (Zofran) 4 mg IV Q4HP PRN PRN Reason: Nausea And Vomiting Prochlorperazine Maleate (Compazine) 12.5 mg PA Q12HP PRN PRN Reason: Nausea And Vomiting Promethazine HCl (Phenergan) 12.5 mg PO Q6HP PRN PRN Reason: Nausea And Vomiting Sodium Chloride (Saline Flush) 10 ml IV Q12 [facility] Last Admin: 05/07/18 09:03 Dose: 10 ml Admin: 05/06/18 20:09 Dose: 10 ml Admin: 05/06/18 10:33 Dose: 10 ml Admin: 05/05/18 21:32 Dose: 10 ml Assessment and Plan - Narrative A/P Narrative: A: 1. MSSA red devil TV endocarditis: blood Cx +ve for Staph aureus with neg mecA gene suggesting it to be MSSA - TTE showing TV vegetation. - Cx from 05/03 neg so far 2. Lt upper extremity swelling and signs of inflammation: Secondary to local cellulitis and associated DVT. CT negative for any necrotizing infection - Concerns that cellulitis sec to MRSA as pt was already on Cefazolin when it started. A short course of 5 days would be fine 3. Active IV drug use Recommendations - For best outcomes, pt should be placed in a SNF to prevent drug use through the PICC line - Continue IV Cefazolin 2 gm q8 hrs, day 5. will need 4 weeks IV course as it is Rt sided endocarditis Start date: 05/03/18 Stop date: 05/31/18 will need outpt ID f/u to decide if he needs any furthr therapy based on his ESR /CRP and clinical condition For follow-up: check ESR and CRP every other week, CBC and BMP weekly will make a follow up appt at time of discharge -Change IV Vanc to PO Linezolid 600 mg bid with stop date of 05/11/18 Reza Mcgarry MD Infectious diseases
[2018-05-07] MEDS: IPRATROPIUM/ALBUTEROL 3 ML AMPUL.NEB NEB SCH (22:30)
[2018-05-08] MEDS: KETOROLAC 30 MG/ML VIAL IV SCH ×4 (00:07→18:10)
[2018-05-08] MEDS: ACETAMINOPHEN 500 MG TABLET PO SCH ×4 (00:08→18:11)
[2018-05-08] MEDS: IPRATROPIUM/ALBUTEROL 3 ML AMPUL.NEB NEB SCH ×4 (01:09→19:15)
[2018-05-08] MEDS: LORazepam 2 MG/ML VIAL IV PRN ×4 (01:59→21:38)
[2018-05-08] MEDS: 0.9 % SODIUM CHLORIDE 10 ML SYRINGE IV SCH ×3 (06:01→21:39)
[2018-05-08] MEDS: ceFAZolin 1 GM VIAL IV SCH ×3 (06:03→21:38)
[2018-05-08] MEDS: morphine 30 MG TAB.SR.12H PO SCH ×3 (06:03→21:38)
[2018-05-08 07:20] LABS: Basophils # (Auto) 0.1 K/mcL (0.0-0.3); Basophils % (Auto) 0.6 % (0.0-2.0); Eosinophils # (Auto) 0.5 K/mcL (0.0-0.7); Eosinophils % (Auto) 4.8 % (0.0-7.0); Granulocytes % (Auto) 70.9 % (38.0-78.0); Lymphocytes # (Auto) 1.5 K/mcL (1.5-4.8); Lymphocytes % (Auto) 14.5 % (15.5-49.0); Mean Cell Volume 87.1 fL (80.0-100.0); Mean Corpuscular Hemoglobin 29.6 pg (26.0-34.0); Monocytes % (Auto) 9.2 % (1.0-12.0); Platelet Count 327 K/mcL (140-440); RBC 3.71 M/mcL (4.50-5.90); Red Cell Distribution Width 14.1 % (11.5-14.5)
[2018-05-08] MEDS ORDERED: PROCHLORPERAZINE 25 MG SUPP.RECT PR PRN ×2 (07:47→07:53)
[2018-05-08] MEDS ORDERED: ONDANSETRON 4 MG/2 ML VIAL IV PRN ×2 (07:47→07:53)
[2018-05-08] MEDS ORDERED: PROMETHAZINE 25 MG TABLET PO PRN ×2 (07:47→07:53)
[2018-05-08] MEDS ORDERED: LORazepam 2 MG/ML VIAL IV PRN ×2 (07:47→07:52)
[2018-05-08 07:52] LABS: ALT/SGPT 6 U/l (0-40); Albumin/Globulin Ratio 0.9 (1.0-2.3); Alkaline Phosphatase 61 U/L (39-117); Bilirubin,Direct < 0.2 mg/dL (0.0-0.3); Blood Urea Nitrogen 16 mg/dl (6-20); Gamma Glutamyl Transpeptidase 11 U/L (8-61)
[2018-05-08] MEDS ORDERED: METOPROLOL TARTRATE 5 MG/5 ML VIAL IV ONE (08:02)
[2018-05-08] MEDS ORDERED: LORazepam 2 MG/ML VIAL ONE (08:03)
[2018-05-08] MEDS ORDERED: ALTEPLASE 2 MG VIAL IV ONE (08:03)
[2018-05-08] MEDS ORDERED: 0.9 % SODIUM CHLORIDE 1,000 ML IV ONE ×2 (08:04→16:29)
[2018-05-08] MEDS ORDERED: FAMOTIDINE 20 MG TABLET PO SCH (09:00)
[2018-05-08] MEDS ORDERED: LINEZOLID 600 MG TABLET PO SCH ×2 (09:00)
[2018-05-08] MEDS ORDERED: 0.9 % SODIUM CHLORIDE 10 ML SYRINGE IV SCH (09:00)
[2018-05-08] MEDS ORDERED: APIXABAN 5 MG TABLET PO SCH (09:00)
[2018-05-08] MEDS: NICOTINE 14 MG PATCH TOPICAL SCH (09:28)
[2018-05-08] MEDS: FAMOTIDINE 20 MG TABLET PO SCH ×2 (09:28→21:41)
[2018-05-08] MEDS: APIXABAN 5 MG TABLET PO SCH ×2 (09:35→21:39)
[2018-05-08] MEDS ORDERED: METOPROLOL TARTRATE 5 MG/5 ML VIAL IV PRN (09:40)
--- NOTE | 2018-05-08 09:46 | XRay Report ---
HISTORY: Fever, tachycardia and diaphoresis FINDINGS: The lungs are clear and normally expanded. There is no evidence of pneumonia, adenopathy or pleural effusion. The heart size is normal. There is a PICC line placed through the right arm with the tip in the superior vena cava. IMPRESSION: Normal exam Interpreted and Authenticated by: Santino Smith 05/08/18
[2018-05-08] MEDS ORDERED: NICOTINE 14 MG PATCH TOPICAL SCH (10:00)
--- NOTE | 2018-05-08 10:20 | Internal Med Progress Note ---
Medical - PN: Subj Patient information: Note initiated : 05/08/18 at 10:18 am Service Date, if different from initiated Date: [] Patient: Wilman Rosas a 28 y/o M admitted on 05/03/18 for Fever. Chief Complaint: [] Interval history: Mr. Rosas is a 28 year old M Who presents with generalized weakness fatigue malaise fevers headaches chills, he states this been going on for a 1-2 weeks but worsened over the past 1-2 days. History is significant for endocarditis in February he was discharged to rehab facility for 6 weeks of the antibiotics he was released in March. In March he went to [facility] ER there was concern for possible spinal osteo- the patient left the ER AMA. Has not seen anybody since then. Has sound like a fairly recent diagnosis of renal cell carcinoma this year. After getting out of rehab he was supposed to follow-up with infectious disease and oncologist in [place] he did not follow-up with them because of transportation issues. In the ER he is found to be febrile of up to 105, mildly tachycardic, blood pressure stable. No leukocytosis and lactate was within normal limits. He is using IV methamphetamines again last time he used was last . Concern for recurrent endocarditis. CT scan of the abdomen chest and pelvis was done which showed resolution of his pulmonary septic emboli otherwise no acute pathology other than enlarging left renal tumor. The CT scan was reviewed including the past scans including the one at [facility] where there is concern for osteo-in all 3 scans were compared by the radiologist felt there is no vertebral osteomyelitis. 05/04 Some chronic pain. Occasional cough. Slept on and off last night. 05/05 Pt seen examined this AM notes was in a bit of stress, but otherwise no complaints, did not mention back pain to myself, but did note same to ID physician, Dr Mcgarry wished for MRI t spine and L spine which was ordered yesterday Blood cx neg today, to get picc xfer to med surg status. Pt had picc placed and on way back spiked fever, repeat cultures ordered 2 sets 05/06 Patient seen and examined, no acute overnight events. Patient has pain in the left upper extremity. Swelling and redness around the elbow joint near the IV insertion site. Duplex scan was done which is positive for a DVT. Started the patient on Eliquis. Reviewed risk benefits and complications with the patient he agreed for therapy. Total of [address] scan of the arm ordered for spreading cellulitis vancomycin started. Cultures negative so far 05/07 Patient seen and examined, overnight had some fever and tachycardia fever resolved. Left upper extremity DVT on Eliquis, left upper extremity cellulitis was treated with IV vancomycin will now be switched to Zyvox as per ID recommendations doing well. EKG checked to evaluate for any cardiac blocks and she only has sinus tachycardia. Patient to get nicotine patch. home dose of ms contin verified its 90mg, will change dose to 90mg 05/08 patient seen and examined, overnight issues reviewed. Patient had a heart rate 200s. EKG shows SVT, patient was moved to PCU status, repeat blood cultures drawn as the patient is still febrile, Chest x-ray ordered repeat echo to be done today. Patient notes that he has intermittent palpitations and based on his history of being asked to Valsalva's maneuver it seems that the patient knows that he has intermittent SVTs. The patient's SVT responded spontaneously patient did get metoprolol x1,. Patient got his family in to talk to him. The patient is extremely rude and abusive to the nursing staff, did show his genitalia to the spa experience coordinator. 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 Pertinent ROS: Denies headache, dizziness Denies chest pain, palpitations present Denies cough or shortness of breath (sob present during svt episode) Denies abdominal pain, nausea or vomiting. - Constitutional Vitals: Vital Signs Temp Pulse Resp BP Pulse Ox 100.5 F H 135 H 20 111/71 96 05/08/18 06:45 05/08/18 07:16 05/08/18 07:16 05/08/18 06:45 05/08/18 06:45 Period Temp Pulse Resp BP Sys/West Pulse Ox Last 24 Hr 98.4 F-101.8 F 125-201 20-24 101-127/57-80 90-96 Intake and Output 05/07/18 05/08/18 05/08/18 21:59 05:59 13:59 Intake Total 1220 / 1220 800 / 800 1400 / 1400 Balance 1220 / 1220 800 / 800 1400 / 1400 Weight 187 lb Intake & Output: Intake & Output 05/07/18 05/08/18 05/08/18 21:59 05:59 13:59 Intake Total 1220 / 1220 800 / 800 1400 / 1400 Balance 1220 / 1220 800 / 800 1400 / 1400 Weight 187 lb Intake: IV 1000 / 1000 Oral 1220 / 1220 800 / 800 400 / 400 Other: Meal Dinner Percent of Meal Consumed 100% Stool Size Moderate # Voids 1 1 1 # Bowel Movements 1 1 Exam: Constitutional; Afebrile, cooperative, alert, not in distress. Eyes- No icterus, , No periorbital swelling Ears- Ext ear normal, hearing normal to conversation. Neck- Midline trachea, supple Respiratory system: Air Entry equal on both sides, No crackles or wheezing, no rhonchi. CVS- Rate rhythm regular, S1,S2 heard, no gallop, no rub. systolic murmur triscuspid region Abdomen- Soft nontender abdomen, no organomegaly, no tenderness, no guarding or rigidity, MORTGAGE PROCESSOR- AOOx3, moving all extremities, no gross focal deficit noted. Medical - PN: Obj Da - Labs CBC & Chem 7: 05/08/18 06:40 05/08/18 06:40 Labs: Abnormal Lab Results 05/08/18 05/08/18 05/08/18 06:40 06:40 06:40 RBC Hgb Hct Lymph % (Auto) [place] # (Auto) ESR 108 H Glucose 132 H Calcium 8.4 L Phosphorus 2.3 L Lactate Dehydrogenase C-Reactive Protein 22.6 H Albumin 3.0 L Albumin/Globulin Ratio 0.9 L Urine Opiates Screen U Benzodiazepines Scrn Rheumatoid Factor 05/08/18 05/07/18 05/07/18 06:40 04:00 04:00 RBC 3.71 L 3.97 L Hgb 11.0 L 11.6 L Hct 32.3 L 35.0 L Lymph % (Auto) 14.5 L 15.2 L [place] # (Auto) 1.0 H 1.0 H ESR Glucose 117 H Calcium 8.5 L Phosphorus Lactate Dehydrogenase 251 H C-Reactive Protein Albumin Albumin/Globulin Ratio 0.9 L Urine Opiates Screen U Benzodiazepines Scrn Rheumatoid Factor 05/06/18 05/06/18 05/06/18 13:00 09:46 08:10 RBC Hgb Hct Lymph % (Auto) [place] # (Auto) ESR Glucose 108 H Calcium 8.3 L Phosphorus Lactate Dehydrogenase C-Reactive Protein Albumin 2.9 L Albumin/Globulin Ratio 0.8 L Urine Opiates Screen Suspect positive A U Benzodiazepines Scrn Suspect positive A Rheumatoid Factor 16 H 05/06/18 08:10 RBC 4.25 L Hgb 12.8 L Hct 37.0 L Lymph % (Auto) [place] # (Auto) 1.2 H ESR Glucose Calcium Phosphorus Lactate Dehydrogenase C-Reactive Protein Albumin Albumin/Globulin Ratio Urine Opiates Screen U Benzodiazepines Scrn Rheumatoid Factor Meds: Medications Acetaminophen (Tylenol) 1,000 mg PO Q6H [facility] Albuterol/Ipratropium (Duoneb) 3 ml NEB Q6HRT [facility] Apixaban (Eliquis) 5 mg PO BID [facility] Last Admin: 05/08/18 09:35 Dose: 5 mg Cefazolin Sodium (Ancef) 2 gm IV Q8H [facility] Famotidine (Pepcid) 20 mg PO BID [facility] Last Admin: 05/08/18 09:28 Dose: 20 mg Heparin Sodium (Porcine) (Heparin Flush) 2 ml IV Q12 [facility] Last Admin: 05/08/18 09:28 Dose: 2 ml Ketorolac Tromethamine (Toradol) 30 mg IV Q6 [facility] Stop: 05/08/18 18:07 Linezolid (Zyvox) 600 mg PO Q12 [facility] Last Admin: 05/08/18 09:35 Dose: 600 mg Lorazepam (Ativan) 1 - 2 mg IV Q4HP PRN PRN Reason: ANXIETY/SEDATION Last Admin: 05/08/18 07:58 Dose: 1 mg Metoprolol Tartrate (Lopressor) 5 mg IV Q2HP PRN PRN Reason: Tachyarrhythmias Morphine Sulfate (Ms Contin) 90 mg PO Q8 [facility] Nicotine (Nicoderm) 14 mg TOPICAL DAILY@1000 [facility] Last Admin: 05/08/18 09:28 Dose: 14 mg Ondansetron HCl (Zofran) 4 mg IV Q4HP PRN PRN Reason: Nausea And Vomiting Prochlorperazine Maleate (Compazine) 12.5 mg [place] Q12HP PRN PRN Reason: Nausea And Vomiting Promethazine HCl (Phenergan) 12.5 mg PO Q6HP PRN PRN Reason: Nausea And Vomiting Sodium Chloride (Saline Flush) 10 ml IV Q12 [facility] Last Admin: 05/08/18 09:28 Dose: 10 ml Medical - PN: A/P - Time Spent With Patient Total time spent is greater than 50% in coordination of care (as documented) at patient's floor/unit and/or counseling patient: - Narrative A/P Narrative: A: *Endocarditis, 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: -TTE with small vegetation on Tricuspid valve *Bacteremia (MSSA): as above *IV drug abuse: Methamphetamines, repeat urine tox is neg for meth *Depression/anxiety: *Renal cell carcinoma: Has not followed up with oncology/urology since last year *Chronic neck and back pain *Hyponatremia: resolved with IVF's *Left upper extremity acute DVT *Acute cellulitis left upper extremity -Supraventricular tachycardia, (based on patient interaction, this does not appear to be new) P: -monitor on PCU for now, xfer to tele if remain stable, This will help with close monitoring the patient, and ensure that he is not left alone to his devices. -IV cefazolin to continue for endocarditis. Repeat Echo today -Vancomoycin swichted to linezolid for cellulitis as per ID recs -Po eliquis 5mg bid x 3 months for DVT -Blood cultures repeat ordered. due to persistent fevers, previous set of blood culture are neg, neg growth so far. -ID following,a ppreciate input -IV metoprolol for now prn for SVT, will use adenosine if needed. -Pt declines use of drugs, but has exhibited supicious behaviour, and has been rude to the nursing and ancillary staff in the facility -ECG shows sinus tach, no blocks, will continue with daily ecg for now rather than tele monitoring. -UDS shows benzo and opiates, neg meth -prn benzos for withdrawal -Case management for assistance with drug abuse program and placement -f/u with ID outpt and f/u with urologist for RCC as outpatient -I reviwed the note from Dr Shelley, he has RCC likely and was offered nephrectomy by Dr Reveles, and Dr Shelley, the patient did not follow up after, notes he was told to go to [place] but has not since. I reviewed the importance of having the tumor treated before it can spread. He verbalized understanding. -ppx: [facility] Medical - PN: Qual - VTE Deep Vein Thrombosis/Pulmonary Embolism Present on Admission: No
[2018-05-08] MEDS ORDERED: ACETAMINOPHEN 500 MG TABLET PO SCH (12:00)
[2018-05-08] MEDS ORDERED: KETOROLAC 30 MG/ML VIAL IV SCH (12:00)
[2018-05-08] MEDS ORDERED: IPRATROPIUM/ALBUTEROL 3 ML AMPUL.NEB NEB SCH (13:00)
[2018-05-08] MEDS ORDERED: ceFAZolin 1 GM VIAL IV SCH (14:00)
[2018-05-08] MEDS ORDERED: morphine 30 MG TAB.SR.12H PO SCH (14:00)
[2018-05-08 18:32] LABS: HIV1/2 AG/AB 4TH Generation NON-REACTIVE; Hepatitis B Surface Antigen NEGATIVE (NEGATIVE)
[2018-05-08 18:34] LABS: Hepatitis C Virus Antibody NON REACTIVE (NEGATIVE)
[2018-05-08 18:42] LABS: Hepatitis B Surface Antibody POSITIVE (NEGATIVE)
[2018-05-08] MEDS ORDERED: VANCOMYCIN 1,500 MG in 0.9 % SODIUM CHLORIDE 500 ML IV ONE (18:51)
[2018-05-08] MEDS ORDERED: VANCOMYCIN PER PHARMACY IV SCH (18:51)
[2018-05-08] MEDS: 0.9 % SODIUM CHLORIDE 1,000 ML IV SCH (18:54)
[2018-05-09] MEDS: ACETAMINOPHEN 500 MG TABLET PO SCH ×4 (00:01→17:47)
[2018-05-09] MEDS: IPRATROPIUM/ALBUTEROL 3 ML AMPUL.NEB NEB SCH ×4 (01:24→19:19)
[2018-05-09] MEDS: LORazepam 2 MG/ML VIAL IV PRN ×5 (02:20→21:24)
[2018-05-09] MEDS: NAPROXEN 250 MG TABLET PO SCH ×3 (05:08→17:48)
[2018-05-09] MEDS: ceFAZolin 1 GM VIAL IV SCH ×3 (05:42→21:24)
[2018-05-09 05:43] LABS: Basophils # (Auto) 0 K/mcL (0.0-0.3); Basophils % (Auto) 0.4 % (0.0-2.0); Eosinophils # (Auto) 0.3 K/mcL (0.0-0.7); Eosinophils % (Auto) 3.1 % (0.0-7.0); Granulocytes % (Auto) 66.8 % (38.0-78.0); Lymphocytes # (Auto) 1.8 K/mcL (1.5-4.8); Lymphocytes % (Auto) 18.1 % (15.5-49.0); Mean Cell Volume 86.9 fL (80.0-100.0); Mean Corpuscular HGB Conc 34.2 g/dL (31.0-36.0); Mean Corpuscular Hemoglobin 29.7 pg (26.0-34.0); Monocytes # (Auto) 1.2 K/mcL (0.1-0.9); Monocytes % (Auto) 11.6 % (1.0-12.0); Platelet Count 335 K/mcL (140-440); RBC 3.49 M/mcL (4.50-5.90); Red Cell Distribution Width 14.2 % (11.5-14.5)
[2018-05-09] MEDS: morphine 30 MG TAB.SR.12H PO SCH ×3 (05:43→21:25)
[2018-05-09] MEDS: 0.9 % SODIUM CHLORIDE 1,000 ML IV SCH ×2 (05:49→13:00)
[2018-05-09 06:09] LABS: ALT/SGPT 5 U/l (0-40); Albumin 2.9 gm/dL (3.2-5.2); Albumin/Globulin Ratio 0.9 (1.0-2.3); Alkaline Phosphatase 63 U/L (39-117); Bilirubin,Direct < 0.2 mg/dL (0.0-0.3); Blood Urea Nitrogen 15 mg/dl (6-20); Gamma Glutamyl Transpeptidase 14 U/L (8-61); Uric Acid 3.2 mg/dL (2.5-8.0)
[2018-05-09] MEDS: APIXABAN 5 MG TABLET PO SCH ×2 (08:21→20:14)
[2018-05-09] MEDS: NICOTINE 14 MG PATCH TOPICAL SCH (08:22)
[2018-05-09] MEDS: 0.9 % SODIUM CHLORIDE 10 ML SYRINGE IV SCH ×2 (08:22→20:14)
[2018-05-09] MEDS: FAMOTIDINE 20 MG TABLET PO SCH ×2 (08:22→20:14)
[2018-05-09] MEDS ORDERED: VANCOMYCIN 1,500 MG in 0.9 % SODIUM CHLORIDE 500 ML IV SCH (09:00)
[2018-05-09] MEDS ORDERED: IOPAMIDOL 100 ML BOTTLE IV ONE (12:35)
--- NOTE | 2018-05-09 14:09 | Internal Med Progress Note ---
Medical - PN: Subj Patient information: Note initiated : 05/09/18 at 1:54 pm Service Date, if different from initiated Date: [] Patient: Wilman Rosas a 28 y/o M admitted on 05/03/18 for Fever. Chief Complaint: [] Interval history: Mr. Rosas is a 28 year old M Who presents with generalized weakness fatigue malaise fevers headaches chills, he states this been going on for a 1-2 weeks but worsened over the past 1-2 days. History is significant for endocarditis in February he was discharged to rehab facility for 6 weeks of the antibiotics he was released in March. In March he went to [facility] ER there was concern for possible spinal osteo- the patient left the ER AMA. Has not seen anybody since then. Has sound like a fairly recent diagnosis of renal cell carcinoma this year. After getting out of rehab he was supposed to follow-up with infectious disease and oncologist in [place] he did not follow-up with them because of transportation issues. In the ER he is found to be febrile of up to 105, mildly tachycardic, blood pressure stable. No leukocytosis and lactate was within normal limits. He is using IV methamphetamines again last time he used was last . Concern for recurrent endocarditis. CT scan of the abdomen chest and pelvis was done which showed resolution of his pulmonary septic emboli otherwise no acute pathology other than enlarging left renal tumor. The CT scan was reviewed including the past scans including the one at [facility] where there is concern for osteo-in all 3 scans were compared by the radiologist felt there is no vertebral osteomyelitis. 05/04 Some chronic pain. Occasional cough. Slept on and off last night. 05/05 Pt seen examined this AM notes was in a bit of stress, but otherwise no complaints, did not mention back pain to myself, but did note same to ID physician, Dr Mcgarry wished for MRI t spine and L spine which was ordered yesterday Blood cx neg today, to get picc xfer to med surg status. Pt had picc placed and on way back spiked fever, repeat cultures ordered 2 sets 05/06 Patient seen and examined, no acute overnight events. Patient has pain in the left upper extremity. Swelling and redness around the elbow joint near the IV insertion site. Duplex scan was done which is positive for a DVT. Started the patient on Eliquis. Reviewed risk benefits and complications with the patient he agreed for therapy. Total of [address] scan of the arm ordered for spreading cellulitis vancomycin started. Cultures negative so far 05/07 Patient seen and examined, overnight had some fever and tachycardia fever resolved. Left upper extremity DVT on Eliquis, left upper extremity cellulitis was treated with IV vancomycin will now be switched to Zyvox as per ID recommendations doing well. EKG checked to evaluate for any cardiac blocks and she only has sinus tachycardia. Patient to get nicotine patch. home dose of ms contin verified its 90mg, will change dose to 90mg 05/08 patient seen and examined, overnight issues reviewed. Patient had a heart rate 200s. EKG shows SVT, patient was moved to PCU status, repeat blood cultures drawn as the patient is still febrile, Chest x-ray ordered repeat echo to be done today. Patient notes that he has intermittent palpitations and based on his history of being asked to Valsalva's maneuver it seems that the patient knows that he has intermittent SVTs. The patient's SVT responded spontaneously patient did get metoprolol x1,. Patient got his family in to talk to him. The patient is extremely rude and abusive to the nursing staff, did show his genitalia to the sem manager. On asking if he was doing drugs in the hospital the patient denied same however the patient had ribbing machine operator cigarettes and some pills that were found. 05/09 The patient seen examined, overnight issues reviewed, pt HR elevated at all times baseline HR 110-120, can go high to 130-140. The patient has intermittent shortness of breath. I reviewed the case with Dr Anabel Flynn cardiology who did not feel pt is a surgical candidate given his ongoing drug use, advised continued antibiotics. Advised starging low dose of beta blockers for rate control. Patient has DVT in upper extremity CT A pulmonary artery is negative for PE. The patient lungs have significant tree bud appearance and a cavitary lesion. Reviewed with ID likely from endocarditis. Cellulitis is improving, ID wishes pt to continue with zyvox. Pertinent ROS: Denies headache, dizziness Denies chest pain, palpitations Denies cough or shortness of breath Denies abdominal pain, nausea or vomiting. Pt has intermittent chest pain and shortness of breath. - Constitutional Vitals: Vital Signs Temp Pulse Resp BP Pulse Ox 99.2 F H 105 H 20 117/86 94 05/09/18 12:00 05/09/18 13:06 05/09/18 13:06 05/09/18 12:32 05/09/18 12:32 Period Temp Pulse Resp BP Sys/West Pulse Ox Last 24 Hr 96.1 F-102.7 F 105-135 19-36 92-137/37-104 88-100 Intake and Output 05/08/18 05/09/18 05/09/18 21:59 05:59 13:59 Intake Total 1500 / 1500 1000 / 1000 480 / 480 Output Total 325 / 325 425 / 425 775 / 775 Balance 1175 / 1175 575 / 575 -295 / -295 Weight 187 lb Intake & Output: Intake & Output 05/08/18 05/09/18 05/09/18 21:59 05:59 13:59 Intake Total 1500 / 1500 1000 / 1000 480 / 480 Output Total 325 / 325 425 / 425 775 / 775 Balance 1175 / 1175 575 / 575 -295 / -295 Weight 187 lb Intake: IV 1500 / 1500 1000 / 1000 Sodium Chloride 0.9% 1,000 ml @ 1000 / 1000 125 mls/hr IV .Q8H [facility] Rx#: [id number] Oral 480 / 480 Output: Void Amount 325 / 325 425 / 425 775 / 775 Other: Meal Breakfast Percent of Meal Consumed 100% Feeding Ability Independent Urine Appearance Clear Clear Clear Urine Color Tea Colored Dark Yellow Dark Yellow Brown Urine Odor Foul Foul Foul Stool Size Small Large Stool Color Brown Brown Stool Consistency Soft Normal for Patient Soft # Voids 1 1 # Bowel Movements 1 Exam: Constitutional; Afebrile, cooperative, alert, not in distress. Eyes- No icterus, , No periorbital swelling Ears- Ext ear normal, hearing normal to conversation. Neck- Midline trachea, supple Respiratory system: Air Entry equal on both sides, No crackles or wheezing, no rhonchi. CVS- Rate rhythm regular, S1,S2 heard, no gallop, no rub. Tricuspid regurg murmur Abdomen- Soft nontender abdomen, no organomegaly, no tenderness, no guarding or rigidity, PRODUCT SAFETY EXPERT- AOOx3, moving all extremities, no gross focal deficit noted. Medical - PN: Obj Da - Labs CBC & Chem 7: 05/09/18 04:00 05/09/18 04:00 Labs: Abnormal Lab Results 05/09/18 05/09/18 05/08/18 04:00 04:00 16:42 RBC 3.49 L Hgb 10.4 L Hct 30.4 L Lymph % (Auto) [place] # (Auto) 1.2 H ESR Glucose Calcium 7.6 L Phosphorus Lactate Dehydrogenase C-Reactive Protein Albumin 2.9 L Albumin/Globulin Ratio 0.9 L Urine Opiates Screen U Benzodiazepines Scrn Hep Bs Antibody Positive A 05/08/18 05/08/18 05/08/18 06:40 06:40 06:40 RBC Hgb Hct Lymph % (Auto) [place] # (Auto) ESR 108 H Glucose 132 H Calcium 8.4 L Phosphorus 2.3 L Lactate Dehydrogenase C-Reactive Protein 22.6 H Albumin 3.0 L Albumin/Globulin Ratio 0.9 L Urine Opiates Screen U Benzodiazepines Scrn Hep Bs Antibody 05/08/18 05/07/18 05/07/18 06:40 04:00 04:00 RBC 3.71 L 3.97 L Hgb 11.0 L 11.6 L Hct 32.3 L 35.0 L Lymph % (Auto) 14.5 L 15.2 L [place] # (Auto) 1.0 H 1.0 H ESR Glucose 117 H Calcium 8.5 L Phosphorus Lactate Dehydrogenase 251 H C-Reactive Protein Albumin Albumin/Globulin Ratio 0.9 L Urine Opiates Screen U Benzodiazepines Scrn Hep Bs Antibody 05/06/18 13:00 RBC Hgb Hct Lymph % (Auto) [place] # (Auto) ESR Glucose Calcium Phosphorus Lactate Dehydrogenase C-Reactive Protein Albumin Albumin/Globulin Ratio Urine Opiates Screen Suspect positive A U Benzodiazepines Scrn Suspect positive A Hep Bs Antibody Meds: Medications Acetaminophen (Tylenol) 1,000 mg PO Q6H [facility] Last Admin: 05/09/18 11:21 Dose: 1,000 mg Albuterol/Ipratropium (Duoneb) 3 ml NEB Q6HRT [facility] Last Admin: 05/09/18 13:06 Dose: Not Given Apixaban (Eliquis) 5 mg PO BID [facility] Last Admin: 05/09/18 08:21 Dose: 5 mg [facility] ([facility]) [facility] Cefazolin Sodium (Ancef) 2 gm IV Q8H [facility] Last Admin: 05/09/18 05:42 Dose: 2 gm Famotidine (Pepcid) 20 mg PO BID [facility] Last Admin: 05/09/18 08:22 Dose: 20 mg Heparin Sodium (Porcine) (Heparin Flush) 2 ml IV Q12 [facility] Last Admin: 05/09/18 08:21 Dose: 2 ml Sodium Chloride (Sodium Chloride 0.9%) 1,000 mls @ 125 mls/hr IV .Q8H [facility] Last Admin: 05/09/18 13:00 Dose: Not Given Linezolid (Zyvox) 600 mg PO Q12 [facility] Lorazepam (Ativan) 1 - 2 mg IV Q4HP PRN PRN Reason: ANXIETY/SEDATION Last Admin: 05/09/18 11:14 Dose: 1 mg Metoprolol Tartrate (Lopressor) 5 mg IV Q2HP PRN PRN Reason: Tachyarrhythmias Last Admin: 05/09/18 04:58 Dose: 5 mg Morphine Sulfate (Ms Contin) 90 mg PO Q8 [facility] Last Admin: 05/09/18 05:43 Dose: 90 mg Naproxen (N[facility]rosyn) [facility] Last Admin: 05/09/18 08:13 Dose: Not Given Nicotine (Nicoderm) 14 mg TOPICAL DAILY@1000 [facility] Last Admin: 05/09/18 08:22 Dose: 14 mg Ondansetron HCl (Zofran) 4 mg IV Q4HP PRN PRN Reason: Nausea And Vomiting Prochlorperazine Maleate (Compazine) 12.5 mg [place] Q12HP PRN PRN Reason: Nausea And Vomiting Promethazine HCl (Phenergan) 12.5 mg PO Q6HP PRN PRN Reason: Nausea And Vomiting Sodium Chloride (Saline Flush) 10 ml IV Q12 [facility] Last Admin: 05/09/18 08:22 Dose: 10 ml Medical - PN: A/P - Time Spent With Patient Total time spent is greater than 50% in coordination of care (as documented) at patient's floor/unit and/or counseling patient: - Narrative A/P Narrative: A: *Endocarditis, 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: -TTE with small vegetation on Tricuspid valve *Bacteremia (MSSA): as above *IV drug abuse: Methamphetamines, repeat urine tox is neg for meth *Depression/anxiety: *Renal cell carcinoma: Has not followed up with oncology/urology since last year *Chronic neck and back pain *Hyponatremia: resolved with IVF's *Left upper extremity acute DVT *Acute cellulitis left upper extremity -Supraventricular tachycardia, (based on patient interaction, this does not appear to be new) -fever (drug fever vs tumor related fever, vs due to DVT) P: -monitor on tele, xfer from pcu to tele status, -start on coreg 0.15mg bid, -d/c IVF, check bnp, consider gentle diuresis to decrease preload, as tolerated by blood pressure. -not a candidate for valve surgery as per cardiology -IV cefazolin to continue for endocarditis. Repeat echo reviewed, RV dysfunctino , pulmonary hypertension, -Vancomoycin swichted to linezolid for cellulitis as per ID recs -Po eliquis 5mg bid x 3 months for DVT -Blood cultures repeat ordered. due to persistent fevers, previous set of blood culture are neg, neg growth so far. -ID following,appreciate input -IV metoprolol for now prn for SVT, will use adenosine if needed. -Pt declines use of drugs, but has exhibited suspicious behavior, and has been rude to the nursing and ancillary staff in the facility -ECG shows sinus tach, no blocks, will continue with daily ecg for now rather than tele monitoring. -UDS shows benzo and opiates, neg meth -prn benzos for withdrawal -Case management for assistance with drug abuse program and placement -f/u with ID outpt and f/u with urologist for RCC as outpatient -I reviwed the note from Dr Shelley, he has RCC likely and was offered nephrectomy by Dr Reveles, and Dr Shelley, the patient did not follow up after, notes he was told to go to [place] but has not since. I reviewed the importance of having the tumor treated before it can spread. He verbalized understanding. -ppx: [facility] - PN: Qual - VTE Deep Vein Thrombosis/Pulmonary Embolism Present on Admission: No
--- NOTE | 2018-05-09 14:51 | Cat Scan Report ---
CLINICAL INFORMATION: Fever and suspected pulmonary embolus COMPARISON: 05/03/18 TECHNIQUE: Axial images obtained through the chest. intravenous contrast administration was administered, and scanning was performed during pulmonary arterial phase. Sagittally and coronally reformatted images were obtained. MIP reformatted images. Radiation exposure was limited using dose reduction technology. FINDINGS: A diffuse tree-in-bud infiltrative pattern is present in the periphery of both lungs. This is a new finding since 05/03/18. Contiguous with the pleural surface, in the superior segment right lower lobe there is a cavitary nodule which measures 11 mm. This is also new. Enlarging bands of atelectasis are present in the inferior segment lingula and in the basilar segments left lower lobe. There are a few thin linear scars in both lungs which were seen on the prior study. No pleural effusion is present. Patient has developed enlarged lymph nodes in the ratna and mediastinum. The largest is located in the subcarinal region and measures 2 cm. The pulmonary arteries are normal without evidence of emboli. The aorta is normal in caliber and there is no aneurysm or dissection. Heart is normal in size and contour. There are no calcified plaques. IMPRESSION: No evidence of pulmonary emboli New tree-in-bud infiltrates in both lungs. This is a nonspecific finding but probably due to an infectious bronchiolitis. This may be seen with tuberculosis, mycobacterium avium, virus, fungus, pneumocystis pneumonia and aspiration bronchopneumonia. This is not a pattern one normally sees with septic emboli 11 mm cavitary nodule in the right lower lobe. This is probably due to infection. Dr. Carrasco was called with results Interpreted and Authenticated by: Santino Smith 05/09/18
[2018-05-09] MEDS: CARVEDILOL 3.125 MG TABLET PO SCH (17:47)
[2018-05-09] MEDS: LINEZOLID 600 MG TABLET PO SCH (20:14)
[2018-05-10] MEDS: ACETAMINOPHEN 500 MG TABLET PO SCH ×2 (00:01→05:27)
[2018-05-10] MEDS: LORazepam 2 MG/ML VIAL IV PRN ×2 (01:21→05:26)
[2018-05-10] MEDS: IPRATROPIUM/ALBUTEROL 3 ML AMPUL.NEB NEB SCH ×2 (01:22→07:22)
[2018-05-10] MEDS: morphine 30 MG TAB.SR.12H PO SCH (05:26)
[2018-05-10] MEDS: ceFAZolin 1 GM VIAL IV SCH (05:26)
[2018-05-10 05:45] LABS: Basophils # (Auto) 0.1 K/mcL (0.0-0.3); Basophils % (Auto) 0.6 % (0.0-2.0); Eosinophils # (Auto) 0.6 K/mcL (0.0-0.7); Eosinophils % (Auto) 5.6 % (0.0-7.0); Granulocytes % (Auto) 69.4 % (38.0-78.0); Lymphocytes # (Auto) 1.7 K/mcL (1.5-4.8); Lymphocytes % (Auto) 15.8 % (15.5-49.0); Mean Cell Volume 86.7 fL (80.0-100.0); Mean Corpuscular HGB Conc 33.4 g/dL (31.0-36.0); Monocytes # (Auto) 0.9 K/mcL (0.1-0.9); Monocytes % (Auto) 8.6 % (1.0-12.0); Platelet Count 428 K/mcL (140-440); RBC 3.24 M/mcL (4.50-5.90); Red Cell Distribution Width 14.4 % (11.5-14.5)
[2018-05-10 06:00] LABS: ALT/SGPT 6 U/l (0-40); Albumin 2.6 gm/dL (3.2-5.2); Albumin/Globulin Ratio 0.8 (1.0-2.3); Alkaline Phosphatase 64 U/L (39-117); Bilirubin,Direct < 0.2 mg/dL (0.0-0.3); Blood Urea Nitrogen 13 mg/dl (6-20); Gamma Glutamyl Transpeptidase 16 U/L (8-61); Uric Acid 3.2 mg/dL (2.5-8.0)
[2018-05-10] MEDS: CARVEDILOL 3.125 MG TABLET PO SCH (07:52)
[2018-05-10] MEDS: NAPROXEN 250 MG TABLET PO SCH (07:53)
[2018-05-10] MEDS: NICOTINE 14 MG PATCH TOPICAL SCH (09:18)
[2018-05-10] MEDS: LINEZOLID 600 MG TABLET PO SCH (09:18)
[2018-05-10] MEDS: APIXABAN 5 MG TABLET PO SCH (09:18)
[2018-05-10] MEDS: FAMOTIDINE 20 MG TABLET PO SCH (09:18)
[2018-05-10] MEDS: 0.9 % SODIUM CHLORIDE 10 ML SYRINGE IV SCH (09:25)
[2018-05-10] MEDS ORDERED: LORazepam 1 MG TABLET PO PRN ×2 (09:38→09:56)
[2018-05-10] MEDS ORDERED: PROCHLORPERAZINE 25 MG SUPP.RECT PR PRN (09:56)
[2018-05-10] MEDS ORDERED: PROMETHAZINE 25 MG TABLET PO PRN (09:56)
[2018-05-10] MEDS ORDERED: METOPROLOL TARTRATE 5 MG/5 ML VIAL IV PRN (09:56)
[2018-05-10] MEDS ORDERED: ONDANSETRON 4 MG/2 ML VIAL IV PRN (09:56)
[2018-05-10] MEDS ORDERED: NICOTINE 14 MG PATCH TOPICAL SCH (10:00)
--- NOTE | 2018-05-10 11:35 | Internal Med Progress Note ---
Medical - PN: Subj Patient information: Note initiated : 05/10/18 at 11:14 am Service Date, if different from initiated Date: [] Patient: Wilman Rosas a 28 y/o M admitted on 05/03/18 for Fever. Chief Complaint: [] Interval history: Mr. Rosas is a 28 year old M Who presents with generalized weakness fatigue malaise fevers headaches chills, he states this been going on for a 1-2 weeks but worsened over the past 1-2 days. History is significant for endocarditis in February he was discharged to rehab facility for 6 weeks of the antibiotics he was released in March. In March he went to [facility] ER there was concern for possible spinal osteo- the patient left the ER AMA. Has not seen anybody since then. Has sound like a fairly recent diagnosis of renal cell carcinoma this year. After getting out of rehab he was supposed to follow-up with infectious disease and oncologist in [place] he did not follow-up with them because of transportation issues. In the ER he is found to be febrile of up to 105, mildly tachycardic, blood pressure stable. No leukocytosis and lactate was within normal limits. He is using IV methamphetamines again last time he used was last . Concern for recurrent endocarditis. CT scan of the abdomen chest and pelvis was done which showed resolution of his pulmonary septic emboli otherwise no acute pathology other than enlarging left renal tumor. The CT scan was reviewed including the past scans including the one at [facility] where there is concern for osteo-in all 3 scans were compared by the radiologist felt there is no vertebral osteomyelitis. 05/04 Some chronic pain. Occasional cough. Slept on and off last night. 05/05 Pt seen examined this AM notes was in a bit of stress, but otherwise no complaints, did not mention back pain to myself, but did note same to ID physician, Dr Mcgarry wished for MRI t spine and L spine which was ordered yesterday Blood cx neg today, to get picc xfer to med surg status. Pt had picc placed and on way back spiked fever, repeat cultures ordered 2 sets 05/06 Patient seen and examined, no acute overnight events. Patient has pain in the left upper extremity. Swelling and redness around the elbow joint near the IV insertion site. Duplex scan was done which is positive for a DVT. Started the patient on Eliquis. Reviewed risk benefits and complications with the patient he agreed for therapy. Total of [address] scan of the arm ordered for spreading cellulitis vancomycin started. Cultures negative so far 05/07 Patient seen and examined, overnight had some fever and tachycardia fever resolved. Left upper extremity DVT on Eliquis, left upper extremity cellulitis was treated with IV vancomycin will now be switched to Zyvox as per ID recommendations doing well. EKG checked to evaluate for any cardiac blocks and she only has sinus tachycardia. Patient to get nicotine patch. home dose of ms contin verified its 90mg, will change dose to 90mg 05/08 patient seen and examined, overnight issues reviewed. Patient had a heart rate 200s. EKG shows SVT, patient was moved to PCU status, repeat blood cultures drawn as the patient is still febrile, Chest x-ray ordered repeat echo to be done today. Patient notes that he has intermittent palpitations and based on his history of being asked to Valsalva's maneuver it seems that the patient knows that he has intermittent SVTs. The patient's SVT responded spontaneously patient did get metoprolol x1,. Patient got his family in to talk to him. The patient is extremely rude and abusive to the nursing staff, did show his genitalia to the instrument room technician. On asking if he was doing drugs in the hospital the patient denied same however the patient had manager outpatient cigarettes and some pills that were found. 05/09 The patient seen examined, overnight issues reviewed, pt HR elevated at all times baseline HR 110-120, can go high to 130-140. The patient has intermittent shortness of breath. I reviewed the case with Dr Anabel Flynn cardiology who did not feel pt is a surgical candidate given his ongoing drug use, advised continued antibiotics. Advised starging low dose of beta blockers for rate control. Patient has DVT in upper extremity CT A pulmonary artery is negative for PE. The patient lungs have significant tree bud appearance and a cavitary lesion. Reviewed with ID likely from endocarditis. Cellulitis is improving, ID wishes pt to continue with zyvox. 05/10 Patient seen examined, overnight issues noted, still tachycardic, fever curve improving. Patient was caught with a spoon? a cut open container of soda. He notes he is trying to do collect wax for his tatoos. I explained to him that there is a strong suspicion he has continued to use drugs while being in the hospital. I would have to restrict visitors and have him monitored at all times, given that he has managed to get stuff from friends or family while being in the hospital. patient was upset with the restrictions in place and asked me to transfer him to another hospital. I had called [facility] yesterday who did not feel any need for transfer or him be a candidate for surgery. I explained to patient that I do not see a medical need for transfer, if he wishes to be transferred out, he has to arrange same. He called [facility] in [place] and the customs house broker there connected me with Dr Zee the hospitalist. On listening to the story, Dr Zee declined the transfer as there is no higher level of medical care that is necessary. I am not holding the patient against his wishes, if he wishes to leave I explained that we would have to remove the picc line if he wishes to leave A. He could then go to any other facility of his choice. The family later showed up and there was aggressive posturing from the family regarding the patients care and they would not follow restrictions placed. Police was called to escort a member of the family as he was too abusive with the nursing staff. I was later informed that he has signed the papers and would be leaving the hospital. Pertinent ROS: complains of back pain. Pt did not seem to be in the mood to provide much history - Constitutional Vitals: Vital Signs Temp Pulse Resp BP Pulse Ox 98.5 F 136 H 26 H 140/103 98 05/10/18 06:46 05/09/18 19:19 05/10/18 11:01 05/10/18 11:01 05/10/18 11:11 Period Temp Pulse Resp BP Sys/West Pulse Ox Last 24 Hr 97.8 F-99.8 F 105-136 13-35 102-148/62-116 88-100 Intake and Output 05/09/18 05/10/18 05/10/18 21:59 05:59 13:59 Intake Total 360 / 360 Output Total 500 / 500 550 / 550 Balance -500 / -500 360 / 360 -550 / -550 Weight 198 lb 3.2 oz Intake & Output: Intake & Output 1005/10/18 05/10/18 21:59 05:59 13:59 Intake Total 360 / 360 Output Total 500 / 500 550 / 550 Balance -500 / -500 360 / 360 -550 / -550 Weight 198 lb 3.2 oz Intake: Oral 360 / 360 Output: Urine Catheter Amount 550 / 550 Void Amount 500 / 500 Other: Urine Appearance Cloudy Clear Sediment Urine Color Light [place] Dark [place] Urine Odor Foul Strong Stool Size Large Stool Color Brown Stool Consistency Normal for Patient Soft # Voids 1 0 Exam: Constitutional; Afebrile, cooperative, alert, not in distress. Respiratory system: Air Entry equal on both sides, No crackles or wheezing, no rhonchi. CVS- Rate rhythm regular, S1,S2 heard, no gallop, no rub. tricuspid regurg murmur present. RESISTOR WINDER- AOOx3, moving all extremities, no gross focal deficit noted. Medical - PN: Obj Da - Labs CBC & Chem 7: 05/10/18 04:00 05/10/18 04:00 Labs: Abnormal Lab Results 05/10/18 05/10/18 05/09/18 04:00 04:00 04:00 RBC 3.24 L Hgb 9.4 L Hct 28.1 L Lymph % (Auto) [place] # (Auto) ESR Glucose 117 H Calcium 7.6 L 7.6 L Phosphorus Lactate Dehydrogenase 269 H C-Reactive Protein NT-Pro-B Natriuret Pep 1364.0 H Albumin 2.6 L 2.9 L Albumin/Globulin Ratio 0.8 L 0.9 L Hep Bs Antibody 05/09/18 05/08/18 05/08/18 04:00 16:42 06:40 RBC 3.49 L Hgb 10.4 L Hct 30.4 L Lymph % (Auto) [place] # (Auto) 1.2 H ESR Glucose Calcium Phosphorus Lactate Dehydrogenase C-Reactive Protein 22.6 H NT-Pro-B Natriuret Pep Albumin Albumin/Globulin Ratio Hep Bs Antibody Positive A 05/08/18 05/08/18 05/08/18 06:40 06:40 06:40 RBC 3.71 L Hgb 11.0 L Hct 32.3 L Lymph % (Auto) 14.5 L [place] # (Auto) 1.0 H ESR 108 H Glucose 132 H Calcium 8.4 L Phosphorus 2.3 L Lactate Dehydrogenase C-Reactive Protein NT-Pro-B Natriuret Pep Albumin 3.0 L Albumin/Globulin Ratio 0.9 L Hep Bs Antibody Meds: Medications Acetaminophen (Tylenol) 1,000 mg PO Q6H [facility] Albuterol/Ipratropium (Duoneb) 3 ml NEB Q6HRT [facility] Apixaban (Eliquis) 5 mg PO BID [facility] Carvedilol (Coreg) 1.5625 mg PO BIDCC [facility] Cefazolin Sodium (Ancef) 2 gm IV Q8H [facility] Famotidine (Pepcid) 20 mg PO BID [facility] Heparin Sodium (Porcine) (Heparin Flush) 2 ml IV Q12 [facility] Linezolid (Zyvox) 600 mg PO Q12 [facility] Lorazepam (Ativan) 1 - 2 mg PO Q4HP PRN PRN Reason: ANXIETY/SEDATION Last Admin: 05/10/18 10:18 Dose: 1 mg Metoprolol Tartrate (Lopressor) 5 mg IV Q2HP PRN PRN Reason: Tachyarrhythmias Morphine Sulfate (Ms Contin) 90 mg PO Q8 [facility] Naproxen (Naprosyn) 500 mg PO BIDCC [facility] Nicotine (Nicoderm) 14 mg TOPICAL DAILY@1000 [facility]IT[facility] Last Admin: 05/10/18 10:08 Dose: Not Given Ondansetron HCl (Zofran) 4 mg IV Q4HP PRN PRN Reason: Nausea And Vomiting Prochlorperazine Maleate (Compazine) 12.5 mg [place] Q12HP PRN PRN Reason: Nausea And Vomiting Promethazine HCl (Phenergan) 12.5 mg PO Q6HP PRN PRN Reason: Nausea And Vomiting Sodium Chloride (Saline Flush) 10 ml IV Q12 [facility] Medical - PN: A/P - Time Spent With Patient Total time spent is greater than 50% in coordination of care (as documented) at patient's floor/unit and/or counseling patient: - Narrative A/P Narrative: A: *Endocarditis, 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 ) P: Patient signed out AMA He is aware that he can go to any hospital of his choosing for ongoing care. Medical - PN: Qual - VTE Deep Vein Thrombosis/Pulmonary Embolism Present on Admission: No
[2018-05-10] MEDS ORDERED: ACETAMINOPHEN 500 MG TABLET PO SCH (12:00)
[2018-05-10] MEDS ORDERED: IPRATROPIUM/ALBUTEROL 3 ML AMPUL.NEB NEB SCH (13:00)
[2018-05-10] MEDS ORDERED: ceFAZolin 1 GM VIAL IV SCH (14:00)
[2018-05-10] MEDS ORDERED: morphine 30 MG TAB.SR.12H PO SCH (14:00)
[2018-05-10] MEDS ORDERED: NAPROXEN 250 MG TABLET PO SCH (17:30)
[2018-05-10] MEDS ORDERED: CARVEDILOL 3.125 MG TABLET PO SCH (17:30)
[2018-05-10] MEDS ORDERED: FAMOTIDINE 20 MG TABLET PO SCH (21:00)
[2018-05-10] MEDS ORDERED: LINEZOLID 600 MG TABLET PO SCH (21:00)
[2018-05-10] MEDS ORDERED: APIXABAN 5 MG TABLET PO SCH (21:00)
[2018-05-10] MEDS ORDERED: 0.9 % SODIUM CHLORIDE 10 ML SYRINGE IV SCH (21:00)
== END 2018-05-10 11:24 | disposition left against medical advice (07) | DRG 289 ==
LOC: ED 21:16 → ICU 05-03 12:50 → MEDSUR 05-05 14:22 → ICU 05-08 07:30
PROVIDERS: ADMIT Internal Medicine; ATTEND Internal Medicine
CPT/HCPCS: 87149; 87389; 97161; 97167; 99223; A9270; J0131; J0690; J0692; J0696; J1170; J1650; J1885; J1956; J2060; J2997; J3370; J7030; J7040; J7050; J7620; J7620-GY; Q9967